=== PATIENT | male | born 1980 | race Caucasian/White ===

== ENCOUNTER 2018-12-30 17:17 | Emergency (ER) | payer OTHER ==
[2018-12-30 17:33] VITALS: O2SAT 96
[2018-12-30] MEDS ORDERED: Sodium Chloride 0.9% 1000 ML 1,000 ML IV STA ×2 (17:39→18:58)
[2018-12-30] MEDS ORDERED: TYLENOL 325 MG PO STA (17:39)
[2018-12-30] MEDS ORDERED: DUONEB 0.5-3 MG/3 ml Neb IH ONE ×5 (17:44→18:58)
--- NOTE | 2018-12-30 17:50 | ERPHSYRPT ---
- History of Present Illness Time Seen by Provider: 12/30/18 17:21 Source: patient, family, old records Exam Limitations: no limitations Patient Subjective Stated Complaint: states since thursday has had fever, body aches, cough, wheezing. has taken tylenol and motrin without relief. Triage Nursing Assessment: ambulated to room per self. skin w/d, color normal. resp nonlabored. occasional wheeze noted. occasional dry cough noted. Physician History: PT IS A 38 Y/O MALE C/O FEVER X 1 WEEK ACCOMPANIED BY COUGH AND WHEEZING AND SORE THROAT. SON AT HOME WITH STREP THROAT. NO DROOLING/DYSPHONIA/TRISMUS/CHEST PAIN/SOB. NO N/V/D/DYSURIA/HEMATURIA. NO TRAVEL OR INTERNATIONAL GUESTS. NO RASH OR TICK BITES. + MYALGIAS. NO RHINORRHEA. NO ARTHRALGIAS. TOOK SOME TYLENOL YESTERDAY. [PMHX DENIES PSHX DENIES MEDS REVIEWED ALL NKDA +TOB +_ ETOH OCC DENIES ILLICITS FHX NON CONTRIB EMPLOYED Allergies/Adverse Reactions: venom-honey bee [bee venom (honey bee)] Allergy (Unknown, Verified 12/30/18 17: 28) Hx Tetanus, Diphtheria Vaccination/Date Given: No Hx Influenza Vaccination/Date Given: No Hx Pneumococcal Vaccination/Date Given: No - Review of Systems Constitutional: No Symptoms, Fever, Fatigue, Malaise, No Chills, No Lethargy, No Night Sweats, No Weakness, No Weight Loss Eyes: No Symptoms, No Discharge, No Eye Pain, No Eye Redness, No Itchy, No Photophobia, No Tearing, No Vision Changes, No Double Vision, No Foreign Body Sensation Ears, Nose, & Throat: No Symptoms, Throat Pain, No Ear Pain, No Ear Discharge, No Hearing Changes, No Tinnitus, No Nose Congestion, No Nose Discharge, No Epistaxis, No Mouth Pain, No Mouth Swelling, No Throat Swelling, No Hoarse, No Painful Swallowing, No Stridor Respiratory: No Symptoms, Cough, Wheezing, No Cyanosis, No Dyspnea, No Dyspnea on Exertion (TORREZ), No Stridor Cardiac: No Symptoms, No Chest Pain, No Edema, No Palpitations, No Syncope, No Orthopnea Abdominal/Gastrointestinal: No Symptoms, No Abdominal Pain, No Nausea, No Vomiting, No Diarrhea, No Constipation, No Hematemesis, No Hematochezia, No Melena, No Dysphagia, No Appetite Changes Genitourinary Symptoms: No Symptoms, No Dysuria, No Frequency, No Hematuria, No Hesitancy, No Incontinence, No Urgency, No Urinary Retention, No Flank Pain Musculoskeletal: No Symptoms, No Arthralgias, No Back Pain, No Neck Pain, No Deformity, No Fall, No Injury, No Joint Redness, No Joint Pain, No Joint Swelling, No Myalgias Skin: No Symptoms, No Cellulitis, No Decubiti, No Induration, No Pruritis, No Rash, No Skin Lesions, No Dryness Neurological: No Symptoms, No Dizziness, No Focal Weakness, No Gait Changes, No Headache, No Irritability, No Lethargy, No Paralysis, No Parasthesia, No Seizure , No Sensory Changes, No Speech Changes, No Tics, No Tremors, No Vertigo Psychological: No Symptoms, No Alcohol Abuse, No Drug Abuse, No Anxiety, No Depression, No Suicidal Ideations, No Homicidal Ideations, No Emotional Lability , No Hallucinations, No Memory Loss, No Mood Changes Endocrine: No Symptoms, No Polyuria, No Polydipsia, No Hair Changes, No Cold Intolerance, No Excessive Sweating, No Goiter Hematologic/Lymphatic: No Symptoms, No Anemia, No Blood Clots, No Easy Bleeding , No Gum Bleeding, No Easy Bruising, No Adenopathy Immunological/Allergic: No Symptoms All Other Systems: Reviewed and Negative - Past Medical History Pertinent Past Medical History: No Neurological History: No Pertinent History ENT History: No Pertinent History Cardiac History: No Pertinent History Respiratory History: No Pertinent History Endocrine Medical History: No Pertinent History Musculoskeletal History: No Pertinent History GI Medical History: No Pertinent History - Past Surgical History Past Surgical History: Yes Neuro Surgical History: No Pertinent History Cardiac: No Pertinent History Respiratory: No Pertinent History Gastrointestinal: No Pertinent History Genitourinary: No Pertinent History Musculoskeletal: Orthopedic Surgery Male Surgical History: No Pertinent History Other Surgical History: right shoulder-LABRUM, RT CARPAL TUNNEL - Social History Smoking Status: Current every day smoker How long have you smoked: 20 Exposure to second hand smoke: Yes Drug Use: none Patient Lives Alone: Yes - Nursing Vital Signs Nursing Vital Signs: Initial Vital Signs Temperature 100 F 12/30/18 17:24 Pulse Rate 107 H 12/30/18 17:24 Respiratory Rate 16 12/30/18 17:24 Blood Pressure 155/84 12/30/18 17:24 O2 Sat by Pulse Oximetry 96 12/30/18 17:24 Pain Scale Pain Intensity 6 - Physical Exam General Appearance: no apparent distress, alert Eye Exam: PERRL/EOMI, eyes nml inspection, other (fundi normal stefany), No scleral icterus, No pale conjunctivae, No photophobia, No EOM palsy/anisocoria Ears, Nose, Throat Exam: normal ENT inspection, TMs normal, pharynx normal, TM abnormal (L), pharyngeal erythema, other (uvula midline, floor of mouth soft, NO TRISMUS), No moist mucous membranes, No dry mucous membranes, No TM abnormal (R), No tonsillar exudate Neck Exam: normal inspection, non-tender, supple, full range of motion, No meningismus, No mass, No Brudzinski, No Kernig's, No carotid bruit, No JVD, No limited range of motion, No lymphadenopathy, No midline tenderness, No thyromegaly Respiratory Exam: airway intact, diminished breath sounds, wheezing, No chest tenderness, No respiratory distress, No accessory muscle use, No prolonged expirations, No crackles/rales, No rhonchi, No stridor, No pleural rub Cardiovascular Exam: regular rate/rhythm, normal heart sounds, normal peripheral pulses, tachycardia, capillary refill <2 sec, No murmur, No friction rub, No gallop, No bradycardia, No irregular, No capillary refill 2-3 sec, No capillary refill >3 sec, No edema, No pulse deficit Gastrointestinal/Abdomen Exam: soft, normal bowel sounds, No tenderness, No distention, No mass, No guarding, No ecchymosis, No pulsatile mass, No rebound, No hernia, No hepatomegaly, No organomegaly, No splenomegaly, No bruit Male Genitalia Exam: normal genitalia Rectal Exam: deferred Back Exam: normal inspection, normal range of motion, other (neg slr stefany, no sacral anesthesia, dtr 2/4 stefany patella), No CVA tenderness, No vertebral tenderness, No rash, No decreased range of motion, No muscle spasm, No point tenderness Extremity Exam: normal inspection, normal range of motion, pelvis stable, No amputations, No contusions, No calf tenderness, No deformities, No lacerations, No parasthesia, No paralysis, No inflammation, No joint swelling, No limited range of motion, No pedal edema, No swelling, No tenderness Neurologic Exam: alert, oriented x 3, cooperative, 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[place] [employer] II-XII nml as tested, normal mood/affect, nml cerebellar function, nml station & gait, sensation nml, No motor deficits, No sensory deficit, No disoriented, No confusion, No agitation, No uncooperative, No intoxicated appearance, No depressed mood/affect , No motor weakness, No facial droop, No slurred speech, No aphasia, No dysarthria, No abnormal gait, No abnormal cerebellar tests, No abnormal 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ing mill II- XII, No EOM palsy Skin Exam: normal color, warm, dry, No rash, No petechiae, No jaundice, No abrasion, No cyanosis, No diaphoresis, No decubitus, No embolic lesions, No ecchymosis, No jaundice, No laceration, No mottled, No pale Lymphatic Exam: No adenopathy SpO2 Interpretation: normal SpO2: 96 O2 Delivery: Room Air - Course Nursing assessment & vital signs reviewed: Yes Ordered Tests: Active Orders 24 hr Category Date Time Status IV Insertion STAT Care 12/30/18 17:39 Active CHEST 2 VIEWS (PA AND LAT) Stat Exams 12/30/18 17:41 Taken CBC W DIFF Stat Lab 12/30/18 18:03 Completed CMP Stat Lab 12/30/18 18:03 Completed Lactic Acid Stat Lab 12/30/18 19:00 Ordered [place] Screen Stat Lab 12/30/18 18:03 Completed UA W/RFX UR CULTURE Stat Lab 12/30/18 17:40 Uncollected Peak Expiratory Flow Rate ONCE RT 12/30/18 18:27 Active Respiratory Therapy Assessment DAILY RT 12/30/18 18:27 Active Medication Summary Generic Name Dose Route Start Last Admin Trade Name Freq PRN Reason Stop Dose Admin Dexamethasone Sodium Phosphate 10 mg 12/30/18 19:01 Decadron 10mg Inj. IV 12/30/18 19:02 STAT ONE Sodium Chloride 1,000 mls @ 999 mls/hr 12/30/18 18:58 Sodium Chloride 0.9% 1000 Ml IV 12/30/18 19:58 .Q1H1M STA Discontinued Medications Generic Name Dose Route Start Last Admin Trade Name Freq PRN Reason Stop Dose Admin Acetaminophen 650 mg 12/30/18 17:39 12/30/18 18:03 Tylenol 325 Mg PO 12/30/18 17:40 650 mg STAT STA Administration Acetaminophen Confirm 12/30/18 17:58 Tylenol 325 Mg Administered 12/30/18 17:59 Dose 650 mg .ROUTE .STK-MED ONE Albuterol/Ipratropium 3 ml 12/30/18 17:44 12/30/18 18:22 Duoneb 0.5-3 Mg/3 Ml Neb IH 12/30/18 17:45 3 ml STAT ONE Administration Albuterol/Ipratropium 3 ml 12/30/18 17:45 12/30/18 18:22 Duoneb 0.5-3 Mg/3 Ml Neb IH 12/30/18 17:46 3 ml STAT ONE Administration Albuterol/Ipratropium 3 ml 12/30/18 17:45 12/30/18 18:22 Duoneb 0.5-3 Mg/3 Ml Neb IH 12/30/18 17:46 3 ml STAT ONE Administration Albuterol/Ipratropium Confirm 12/30/18 18:18 Duoneb 0.5-3 Mg/3 Ml Neb Administered 12/30/18 18:19 Dose 9 ml IH .STK-MED ONE Albuterol/Ipratropium 3 ml 12/30/18 18:58 Duoneb 0.5-3 Mg/3 Ml Neb IH 12/30/18 18:59 STAT ONE Sodium Chloride 1,000 mls @ 999 mls/hr 12/30/18 17:39 12/30/18 18:02 Sodium Chloride 0.9% 1000 Ml IV 12/30/18 18:39 999 mls/hr .Q1H1M STA Administration Sodium Chloride Confirm 12/30/18 17:58 Sodium Chloride 0.9% 1000 Ml Administered 12/30/18 17:59 Dose 1,000 mls @ ud .ROUTE .STK-MED ONE Ketorolac Tromethamine 30 mg 12/30/18 18:58 Toradol 30 Mg Injection IV 12/30/18 18:59 STAT ONE Lab/Rad Data: Laboratory Result Diagrams 12/30/18 18:03 12/30/18 18:03 Laboratory Results 12/30/18 12/30/18 12/30/18 Range/Units 18:09 18:03 18:03 WBC (4.0-10.5) K/mm3 RBC (4.1-5.6) M/mm3 Hgb (12.5-18.0) gm/dl Hct (42-50) % MCV (78-100) fl MCH (26-32) pg MCHC (32-36) g/dl RDW (11.5-14.0) % Plt Count (150-450) K/mm3 MPV (6-9.5) fl Gran % (36.0-66.0) % Eos # (Auto) (0-0.5) Absolute Lymphs (auto) (1.0-4.6) Absolute Monos (auto) (0.0-1.3) Lymphocytes % (24.0-44.0) % Monocytes % (0.0-12.0) % Eosinophils % (0.00-5.0) % Basophils % (0.0-0.4) % Absolute Granulocytes (1.4-6.9) Basophils # (0-0.4) Sodium (137-145) mmol/L Potassium (3.5-5.1) mmol/L Chloride (98-107) mmol/L Carbon Dioxide (22-30) mmol/L Anion Gap (5-15) MEQ/L BUN (9-20) mg/dL Creatinine (0.66-1.25) mg/dL Estimated GFR ML/MIN Glucose (74-106) mg/dL Calcium (8.4-10.2) mg/dL Total Bilirubin (0.2-1.3) mg/dL AST (17-59) U/L ALT (0-50) U/L Alkaline Phosphatase (38-126) U/L Serum Total Protein (6.3-8.2) g/dL Albumin (3.5-5.0) g/dL Monoscreen NEGATIVE (Negative) Influenza Type A Ag NEGATIVE (NEGATIVE) Influenza Type B Ag NEGATIVE (NEGATIVE) RSV (PCR) NEGATIVE (Negative) Group A Strep Antibody NEGATIVE (NEGATIVE) 12/30/18 12/30/18 Range/Units 18:03 18:03 WBC 11.8 H (4.0-10.5) K/mm3 RBC 5.58 (4.1-5.6) M/mm3 Hgb 16.5 (12.5-18.0) gm/dl Hct 49.4 (42-50) % MCV 88.5 (78-100) fl MCH 29.6 (26-32) pg MCHC 33.4 (32-36) g/dl RDW 13.2 (11.5-14.0) % Plt Count 198 (150-450) K/mm3 MPV 9.5 (6-9.5) fl Gran % 72.1 H (36.0-66.0) % Eos # (Auto) 0.10 (0-0.5) Absolute Lymphs (auto) 2.13 (1.0-4.6) Absolute Monos (auto) 1.04 (0.0-1.3) Lymphocytes % 18.0 L (24.0-44.0) % Monocytes % 8.8 (0.0-12.0) % Eosinophils % 0.8 (0.00-5.0) % Basophils % 0.3 (0.0-0.4) % Absolute Granulocytes 8.52 H (1.4-6.9) Basophils # 0.03 (0-0.4) Sodium 139 (137-145) mmol/L Potassium 3.7 (3.5-5.1) mmol/L Chloride 101 (98-107) mmol/L Carbon Dioxide 27 (22-30) mmol/L Anion Gap 14.6 (5-15) MEQ/L BUN 14 (9-20) mg/dL Creatinine 1.08 (0.66-1.25) mg/dL Estimated GFR > 60.0 ML/MIN Glucose 126 H (74-106) mg/dL Calcium 9.5 (8.4-10.2) mg/dL Total Bilirubin 0.40 (0.2-1.3) mg/dL AST 24 (17-59) U/L ALT 24 (0-50) U/L Alkaline Phosphatase 61 (38-126) U/L Serum Total Protein 7.5 (6.3-8.2) g/dL Albumin 4.4 (3.5-5.0) g/dL Monoscreen (Negative) Influenza Type A Ag (NEGATIVE) Influenza Type B Ag (NEGATIVE) RSV (PCR) (Negative) Group A Strep Antibody (NEGATIVE) - Progress Progress: improved Progress Note: 12/30/18 19:01 STILL WHEEZING AFTER NEBS X 3 STILL TACHYCARDIC AND FEBRILE WILL ADD TORADOL, REPEAT NEB, DECADRON, MORE IVF PT APPEARS ILL BUT NOT TOXIC RESP PANEL NEG ? EARLY LL INFILTRATE? WILL COVER WITH ROCEPHIN ZITRHOMAX AND CHECK LACTATE DW PT ADMISSION BUT HE REFUSES 12/30/18 19:03 12/30/181999 CARE ENDORSED TO PARTH RE-EVAL LABS AND PT. IF PT STILL REFUSES ADMISSION, PARTH TO AMA WITH ZPAK, PREDNISONE, ALBUTEROL ALL QUESTIONS ANSWERED TO PT AND FAMILY SATISFACTION Counseled pt/family regarding: drug and/or alcohol abuse, lab results, diagnosis , need for follow-up, rad results, smoking cessation - Departure Departure Disposition: AMA Clinical Impression: Left lower lobe pneumonia, Bronchospasm, acute Condition: Stable Critical Care Time: No Referrals: DOT CAMPOS [Primary Care Provider] - Instructions: Pneumonia, Adult (DC), Fever, Adult (DC), Asthma in Adults Additional Instructions: TO ER IF FEVER OVER 102 THAT WILL NOT GO DOWN WITH TYLENOL AND MOTRIN, INTRACTABLE VOMTING, FAINTING, WORSENING SHORTNESS OF BREATH TAKE MEDICINES DIRECTED YOU WERE OFFERED ADMISSION BECAUSE YOU WERE STILL WHEEZING DESPITE ALBUTEROL TREATMENTS AND YOU WERE STILL FEELING SICK YOU WERE COMPETENT TO MAKE A DECISION BUT DECIDED TO LEAVE AGAINST MEDICAL ADVICE YOUR CHEST XRAY MAY SHOW AN EARLY PNEUMONIA. IT WILL BE OVER-READ TOMORROW BY THE RADIOLOGIST PLEASE SEE YOUR DOCTOR TOMORROW Prescriptions: Azithromycin 250 mg PO DAILY 5 Days #6 tablet Prednisone 50 mg PO DAILY 5 Days #5 tablet
[2018-12-30] MEDS ORDERED: TYLENOL 325 MG ONE (17:58)
[2018-12-30] MEDS ORDERED: Sodium Chloride 0.9% 1000 ML 1,000 ML ONE (17:58)
[2018-12-30 18:08] LABS: Absolute Neutrophil Ct (ANC) 8.52 (1.4-6.9); BASOPHIL % 0.3 % (0.0-0.4); Basophil (Absolute #) 0.03 (0-0.4); Eosinophil % 0.8 % (0.00-5.0); Hematocrit 49.4 % (42-50); Hemoglobin 16.5 gm/dl (12.5-18.0); Lymphocyte (Absolute #) 2.13 (1.0-4.6); Mean Cell Volume 88.5 fl (78-100); Mean Corpuscular Hemoglobin 29.6 pg (26-32); Mean Corpuscular Hgb Concent. 33.4 g/dl (32-36); Mean Platelet Volume 9.5 fl (6-9.5); Monocyte (Absolute #) 1.04 (0.0-1.3); Monocytes % 8.8 % (0.0-12.0); Neutrophil % 72.1 % (36.0-66.0); Platelet Count 198 K/mm3 (150-450); Red Blood Count 5.58 M/mm3 (4.1-5.6); Red Cell Distribution Width 13.2 % (11.5-14.0); White Blood Count 11.8 K/mm3 (4.0-10.5)
[2018-12-30 18:22] LABS: ALBUMIN 4.4 g/dL (3.5-5.0); ALKALINE PHOSPHATASE 61 U/L (38-126); ANION GAP 14.6 MEQ/L (5-15); BLOOD UREA NITROGEN 14 mg/dL (9-20); CHLORIDE 101 mmol/L (98-107); Calcium 9.5 mg/dL (8.4-10.2); Carbon Dioxide 27 mmol/L (22-30); Creatinine 1 1.08 mg/dL (0.66-1.25); Glucose 126 mg/dL (74-106); Potassium 3.7 mmol/L (3.5-5.1); SGOT/AST 24 U/L (17-59); SGPT/ALT 24 U/L (0-50); SODIUM 139 mmol/L (137-145); Total Protein 7.5 g/dL (6.3-8.2)
[2018-12-30 18:42] LABS: INFLUENZA A NEGATIVE (NEGATIVE); INFLUENZA B NEGATIVE (NEGATIVE); RESPIRATORY SYNCTIAL VIRUS NEGATIVE (Negative)
[2018-12-30] MEDS ORDERED: TORAdol 30 mg Injection IV ONE (18:58)
[2018-12-30] MEDS ORDERED: DECADRON 10MG INJ. IV ONE (19:01)
[2018-12-30 19:31] LABS: Appearance CLEAR (CLEAR); Bilirubin NEGATIVE (NEGATIVE); Blood SMALL Ery/ul (0-5); Glucose NEGATIVE (NEGATIVE); Ketones NEGATIVE (NEGATIVE); Leukocyte Esterase NEGATIVE (NEGATIVE); Mucus SLIGHT /HPF (NEGATIVE); Nitrite NEGATIVE (NEGATIVE); Protein,Urine Dip NEGATIVE (Negative); Urobilinogen NEGATIVE mg/dL (0-1)
[2018-12-30 19:41] LABS: Bacteria NONE SEEN /HPF (NEGATIVE)
[2018-12-30] MEDS ORDERED: Zithromax 250 MG TABLET PO ONE (19:58)
[2018-12-30] MEDS ORDERED: ROCEPHIN 1 Gm-D5w 50 ml Bag** 1 G/50 ML IVPB IV STA (19:58)
[2018-12-30 20:42] VITALS: BP 109/65; PULSE 79
--- NOTE | 2018-12-31 08:39 | XRAY ---
Indication: Fever, cough, and chest pain. Comparison: July 06, 2018. PA/lateral chest demonstrates new subtle right lower lobe infiltrate. Remaining heart, left lung, and bony thorax normal again with a few incidental tiny calcified granulomas.
== END 2018-12-30 20:49 | disposition left against medical advice (07) ==
LOC: ED 17:17
DX: J18.1 Lobar pneumonia, unspecified organism (principal); J98.01 Acute bronchospasm
CPT/HCPCS: 36000; 36415; 71046; 80053; 81001; 83605; 85025; 86308; 87631; 87651; 94150; 94640; 96360; 99284; 99291; 99292; A9270-GY

== ENCOUNTER 2020-11-16 08:58 | Emergency (ER) | payer BC, OTHER ==
--- NOTE | 2020-11-16 09:03 | ERPHSYRPT ---
- History of Present Illness Time Seen by Provider: 11/16/20 09:01 Historian: patient Exam Limitations: no limitations Physician History: This is a 40-year-old white male smoker of Camel cigarettes and patient of Dr. Dot Edmonds who presents with 9-day history of central, substernal nonradiating chest pain that describes as aching with intermittent periods of sharp pain. Patient has been under a lot of stress recently. He has not had a fever. He denies cough. He has no known documented coronary artery disease. He takes no medications and has no medication allergies. He has no abdominal pain. He has not had any nausea vomiting or diarrhea symptoms. Timing/Duration: day(s) (9) Activities at Onset: none Quality: aching, sharpness (With intermittent sharpness during the 9 days) Location: substernal, central Chest Pain Radiation: no radiation Severity of Pain-Max: moderate Severity of Pain-Current: mild (To moderate) Associated Symptoms: denies symptoms Prior Chest Pain/Cardiac Workup: no prior chest pain Nitro Today/Relief: no nitro taken today Aspirin Treatment Today: no aspirin today Allergies/Adverse Reactions: venom-honey bee [bee venom (honey bee)] Allergy (Unknown, Verified 11/16/20 09:00) Home Medications: No Reportable Medications [No Reported Medications] 11/16/20 [History] Hx Tetanus, Diphtheria Vaccination/Date Given: No Hx Influenza Vaccination/Date Given: No Hx Pneumococcal Vaccination/Date Given: No Travel Risk - International Travel Have you traveled outside of the country in past 3 weeks: No - Coronavirus Screening Are you exhibiting any of the following symptoms?: No Close contact with a COVID-19 positive Pt in past 14-21 Days: No - Review of Systems Constitutional: No Symptoms Eyes: No Symptoms Ears, Nose, & Throat: No Symptoms Respiratory: No Symptoms Cardiac: Chest Pain Abdominal/Gastrointestinal: No Symptoms Genitourinary Symptoms: No Symptoms Musculoskeletal: No Symptoms Skin: No Symptoms Neurological: No Symptoms Psychological: No Symptoms Endocrine: No Symptoms Hematologic/Lymphatic: No Symptoms Immunological/Allergic: No Symptoms All Other Systems: Reviewed and Negative - Past Medical History Pertinent Past Medical History: No Neurological History: No Pertinent History ENT History: No Pertinent History Cardiac History: No Pertinent History Respiratory History: No Pertinent History Endocrine Medical History: No Pertinent History Musculoskeletal History: No Pertinent History GI Medical History: No Pertinent History - Past Surgical History Past Surgical History: Yes Neuro Surgical History: No Pertinent History Cardiac: No Pertinent History Respiratory: No Pertinent History Gastrointestinal: No Pertinent History Genitourinary: No Pertinent History Musculoskeletal: Orthopedic Surgery Male Surgical History: No Pertinent History Other Surgical History: right shoulder-LABRUM, RT CARPAL TUNNEL - Social History Smoking Status: Current every day smoker How long have you smoked: 20 Exposure to second hand smoke: Yes Drug Use: none Patient Lives Alone: Yes - Nursing Vital Signs Nursing Vital Signs: Initial Vital Signs Temperature 98.0 F 11/16/20 09:00 Pulse Rate 63 11/16/20 09:00 Respiratory Rate 18 11/16/20 09:00 Blood Pressure 152/81 11/16/20 09:00 O2 Sat by Pulse Oximetry 99 11/16/20 09:00 Pain Scale Pain Intensity 0 - Physical Exam General Appearance: mild distress, alert, anxiety Eye Exam: PERRL/EOMI, eyes nml inspection Ears, Nose, Throat Exam: normal ENT inspection, moist mucous membranes Neck Exam: normal inspection, non-tender, supple, full range of motion Respiratory Exam: normal breath sounds, chest tenderness, lungs clear, airway intact, No respiratory distress Cardiovascular Exam: regular rate/rhythm, normal heart sounds, normal peripheral pulses Gastrointestinal/Abdomen Exam: soft, normal bowel sounds, No tenderness Rectal Exam: not done Back Exam: normal inspection, normal range of motion, No CVA tenderness, No vertebral tenderness Extremity Exam: normal inspection, normal range of motion, pelvis stable Neurologic Exam: alert, oriented x 3, cooperative, 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 There is no change from comparison EKG dated 11/20/2014) Ordered Tests: Active Orders 24 hr Category Date Time Status EKG-ER Only STAT Care 11/16/20 09:04 Active IV Insertion STAT Care 11/16/20 09:04 Active Pulse Oximetry (ED) STAT Care 11/16/20 09:04 Active CHEST 1 VIEW (PORTABLE) Stat Exams 11/16/20 09:18 Completed CBC W DIFF Stat Lab 11/16/20 09:19 Completed CMP Routine Lab 11/16/20 09:19 Completed D-DIMER QUANTITATIVE Stat Lab 11/16/20 09:19 Completed NT PRO BNP Routine Lab 11/16/20 09:19 Completed PROTIME WITH INR Stat Lab 11/16/20 09:19 Completed TROPONIN Q3H Lab 11/16/20 09:19 Completed TROPONIN Q3H Lab 11/16/20 12:15 Completed TROPONIN Q3H Lab 11/16/20 15:15 Ordered TROPONIN Q3H Lab 11/16/20 18:15 Ordered TROPONIN Q3H Lab 11/16/20 21:15 Ordered Medication Summary Generic Name Dose Route Start Last Admin Trade Name Freq PRN Reason Stop Dose Admin Sodium Chloride 1,000 mls @ 50 mls/hr 11/16/20 09:15 11/16/20 09:31 Sodium Chloride 0.9% 1000 Ml IV 12/16/20 09:14 50 mls/hr .Q20H THEODORA Administration Discontinued Medications Generic Name Dose Route Start Last Admin Trade Name Freq PRN Reason Stop Dose Admin Aspirin 324 mg 11/16/20 09:04 11/16/20 09:29 Baby Aspirin 81 Mg Chew PO 11/16/20 09:05 324 mg STAT ONE Administration Aspirin Confirm 11/16/20 09:28 Baby Aspirin 81 Mg Chew Administered 11/16/20 09:29 Dose 324 mg .ROUTE .STK-MED ONE Morphine Sulfate 2 mg 11/16/20 09:04 11/16/20 09:31 Morphine Sulfate 2 Mg Inj IV 11/16/20 09:05 2 mg STAT ONE Administration Morphine Sulfate Confirm 11/16/20 09:28 Morphine Sulfate 2 Mg Inj Administered 11/16/20 09:29 Dose 2 mg .ROUTE .STK-MED ONE Nitroglycerin 0.4 mg 11/16/20 09:04 11/16/20 09:30 Nitrostat 0.4 Mg (Ed) SL 11/16/20 09:05 0.4 mg STAT ONE Administration Nitroglycerin Confirm 11/16/20 09:28 Nitrostat 0.4 Mg (Ed) Administered 11/16/20 09:29 Dose 0.4 mg SL .STK-MED ONE Ondansetron HCl 4 mg 11/16/20 09:04 11/16/20 09:30 Zofran 4 Mg/2 Ml Vial IV 11/16/20 09:05 4 mg STAT ONE Administration Ondansetron HCl Confirm 11/16/20 09:28 Zofran 4 Mg/2 Ml Vial Administered 11/16/20 09:29 Dose 4 mg .ROUTE .STK-MED ONE Lab/Rad Data: Laboratory Result Diagrams 11/16/20 09:19 11/16/20 09:19 Laboratory Results 11/16/20 11/16/20 11/16/20 Range/Units 12:15 09:19 09:19 WBC (4.0-10.5) K/mm3 RBC (4.1-5.6) M/mm3 Hgb (12.5-18.0) gm/dl Hct (42-50) % MCV (78-100) fl MCH (26-32) pg MCHC (32-36) g/dl RDW (11.5-14.0) % Plt Count (150-450) K/mm3 MPV (7.5-11.0) fl Gran % (36.0-66.0) % Eos # (Auto) (0-0.5) Absolute Lymphs (auto) (1.0-4.6) Absolute Monos (auto) (0.0-1.3) Lymphocytes % (24.0-44.0) % Monocytes % (0.0-12.0) % Eosinophils % (0.00-5.0) % Basophils % (0.0-0.4) % Absolute Granulocytes (1.4-6.9) Basophils # (0-0.4) PT 11.1 (9.4-12.5) SECONDS INR 0.94 (0.8-3.0) D-Dimer 345 (215-500) ng/mL Sodium 137 (137-145) mmol/L Potassium 4.0 (3.5-5.1) mmol/L Chloride 104 (98-107) mmol/L Carbon Dioxide 21 L (22-30) mmol/L Anion Gap 15.6 H (5-15) MEQ/L BUN 18 (9-20) mg/dL Creatinine 0.84 (0.66-1.25) mg/dL Estimated GFR > 60.0 ML/MIN Glucose 166 H (74-106) mg/dL Calcium 9.6 (8.4-10.2) mg/dL Total Bilirubin 0.30 (0.2-1.3) mg/dL AST 28 (17-59) U/L ALT 25 (0-50) U/L Alkaline Phosphatase 62 (38-126) U/L Troponin I < 0.012 < 0.012 (0.000-0.034) ng/mL NT-Pro-B Natriuret Pep < 11.5 (0-450) pg/mL Serum Total Protein 6.7 (6.3-8.2) g/dL Albumin 4.4 (3.5-5.0) g/dL 11/16/20 Range/Units 09:19 WBC 14.9 H (4.0-10.5) K/mm3 RBC 5.28 (4.1-5.6) M/mm3 Hgb 15.6 (12.5-18.0) gm/dl Hct 46.5 (42-50) % MCV 88.1 (78-100) fl MCH 29.5 (26-32) pg MCHC 33.5 (32-36) g/dl RDW 13.4 (11.5-14.0) % Plt Count 267 (150-450) K/mm3 MPV 9.4 (7.5-11.0) fl Gran % 75.7 H (36.0-66.0) % Eos # (Auto) 0.22 (0-0.5) Absolute Lymphs (auto) 2.69 (1.0-4.6) Absolute Monos (auto) 0.61 (0.0-1.3) Lymphocytes % 18.1 L (24.0-44.0) % Monocytes % 4.1 (0.0-12.0) % Eosinophils % 1.5 (0.00-5.0) % Basophils % 0.6 (0.0-0.4) % Absolute Granulocytes 11.26 H (1.4-6.9) Basophils # 0.09 (0-0.4) PT (9.4-12.5) SECONDS INR (0.8-3.0) D-Dimer (215-500) ng/mL Sodium (137-145) mmol/L Potassium (3.5-5.1) mmol/L Chloride (98-107) mmol/L Carbon Dioxide (22-30) mmol/L Anion Gap (5-15) MEQ/L BUN (9-20) mg/dL Creatinine (0.66-1.25) mg/dL Estimated GFR ML/MIN Glucose (74-106) mg/dL Calcium (8.4-10.2) mg/dL Total Bilirubin (0.2-1.3) mg/dL AST (17-59) U/L ALT (0-50) U/L Alkaline Phosphatase (38-126) U/L Troponin I (0.000-0.034) ng/mL NT-Pro-B Natriuret Pep (0-450) pg/mL Serum Total Protein (6.3-8.2) g/dL Albumin (3.5-5.0) g/dL - Progress Progress: improved, re-examined Air Movement: good Progress Note: 11/16/20 10:44 Chest x-ray shows no acute cardiopulmonary process. 11/16/20 10:45 Medical decision making: I reevaluated this patient. Patient states he is much better and his pain is resolved after the morphine and nitroglycerin. We will keep the patient here for 3-hour troponin as well. If this is negative, we will send him home to follow-up with Dr. Edmonds for further management evaluation. 11/16/20 12:11 I did speak with his primary care doctor, Dot Edmonsd. She stated it if his 3- hour is negative, he can go home. I just evaluate him he is resting comfortably has no chest pain. Blood Culture(s) Obtained: No Antibiotics given: No Counseled pt/family regarding: lab results, diagnosis, need for follow-up, rad results - Departure Departure Disposition: Home Clinical Impression: Chest pain Condition: Stable Critical Care Time: No Referrals: DOT EDMONDS [Primary Care Provider] - Additional Instructions: Follow-up with Dr. Edmonds in her office by phone on 11/19/2020 to make arrangements for follow-up appointment and further management and evaluation.
[2020-11-16] MEDS ORDERED: Zofran 4 MG/2 ML VIAL IV ONE (09:04)
[2020-11-16] MEDS ORDERED: Nitrostat 0.4 MG (ED) SL ONE ×2 (09:04→09:28)
[2020-11-16] MEDS ORDERED: BABY ASPIRIN 81 MG CHEW PO ONE (09:04)
[2020-11-16] MEDS ORDERED: MORPHINE SULFATE 2 MG INJ IV ONE (09:04)
[2020-11-16] MEDS ORDERED: Sodium Chloride 0.9% 1000 ML 1,000 ML IV SCH (09:15)
[2020-11-16 09:25] LABS: Absolute Neutrophil Ct (ANC) 11.26 (1.4-6.9); BASOPHIL % 0.6 % (0.0-0.4); Basophil (Absolute #) 0.09 (0-0.4); Eosinophil % 1.5 % (0.00-5.0); Eosinophil (Absolute #) 0.22 (0-0.5); Hematocrit 46.5 % (42-50); Hemoglobin 15.6 gm/dl (12.5-18.0); Lymphocyte (Absolute #) 2.69 (1.0-4.6); Lymphocytes % 18.1 % (24.0-44.0); Mean Cell Volume 88.1 fl (78-100); Mean Corpuscular Hemoglobin 29.5 pg (26-32); Mean Corpuscular Hgb Concent. 33.5 g/dl (32-36); Mean Platelet Volume 9.4 fl (7.5-11.0); Monocyte (Absolute #) 0.61 (0.0-1.3); Monocytes % 4.1 % (0.0-12.0); Neutrophil % 75.7 % (36.0-66.0); Platelet Count 267 K/mm3 (150-450); Red Blood Count 5.28 M/mm3 (4.1-5.6); Red Cell Distribution Width 13.4 % (11.5-14.0); White Blood Count 14.9 K/mm3 (4.0-10.5)
[2020-11-16] MEDS ORDERED: MORPHINE SULFATE 2 MG INJ ONE (09:28)
[2020-11-16] MEDS ORDERED: Sodium Chloride 0.9% 1000 ML 1,000 ML ONE (09:28)
[2020-11-16] MEDS ORDERED: BABY ASPIRIN 81 MG CHEW ONE (09:28)
[2020-11-16] MEDS ORDERED: Zofran 4 MG/2 ML VIAL ONE (09:28)
--- NOTE | 2020-11-16 09:31 | XRAY ---
Indication: Chest pain. Comparison: March 08, 2020. Portable chest again demonstrates normal heart, lungs, and bony thorax.
[2020-11-16 09:33] LABS: INR 0.94 (0.8-3.0); PROTIME 11.1 SECONDS (9.4-12.5)
[2020-11-16 09:51] LABS: ALBUMIN 4.4 g/dL (3.5-5.0); ALKALINE PHOSPHATASE 62 U/L (38-126); ANION GAP 15.6 MEQ/L (5-15); BLOOD UREA NITROGEN 18 mg/dL (9-20); CHLORIDE 104 mmol/L (98-107); Calcium 9.6 mg/dL (8.4-10.2); Carbon Dioxide 21 mmol/L (22-30); Creatinine 1 0.84 mg/dL (0.66-1.25); EST GLOMERULAR FILTRATION RATE > 60.0 ML/MIN; Glucose 166 mg/dL (74-106); NT PRO BNP < 11.5 pg/mL (0-450); SGOT/AST 28 U/L (17-59); SGPT/ALT 25 U/L (0-50); SODIUM 137 mmol/L (137-145); TROPONIN < 0.012 ng/mL (0.000-0.034); Total Protein 6.7 g/dL (6.3-8.2)
[2020-11-16 14:14] VITALS: BP 131/83; PULSE 83; O2SAT 98
== END 2020-11-16 14:14 | disposition home or self-care (01) ==
LOC: ED 08:58
DX: R07.9 Chest pain, unspecified (principal); Z72.0 Tobacco use
CPT/HCPCS: 36000; 36415; 71045; 80053; 83880; 84484; 85025; 85379; 85610; 93005; 94760; 96374; 96375; 99284; J2270; J2405; A9270-GY

== ENCOUNTER 2021-01-03 16:17 | Emergency (ER) | payer BC ==
[2021-01-03 16:49] VITALS: O2SAT 98
[2021-01-03] MEDS ORDERED: MOTRIN 600 MG PO ONE (16:57)
[2021-01-03] MEDS ORDERED: TYLENOL 325 MG PO STA (16:57)
[2021-01-03] MEDS ORDERED: TYLENOL 325 MG ONE (17:14)
[2021-01-03] MEDS ORDERED: MOTRIN 600 MG ONE (17:14)
[2021-01-03 18:31] LABS: INFLUENZA A NEGATIVE (NEGATIVE); INFLUENZA B NEGATIVE (NEGATIVE); RESPIRATORY SYNCTIAL VIRUS NEGATIVE (Negative); SARS-CoV-2 Xpert Express NEGATIVE (NEGATIVE)
--- NOTE | 2021-01-03 20:04 | ERPHSYRPT ---
- History of Present Illness Time Seen by Provider: 01/03/21 16:50 Source: patient Exam Limitations: no limitations Patient Subjective Stated Complaint: Fever Triage Nursing Assessment: Patient brought back to ED via w/c and transferred to bed per self. Patient A+O X3. Patient's skin flushed, warm and dry. Patient complains of waking up around 1330 with a fever unknown amount due to not taking it and body aches. Patient complains of body aches 6/10. Patient denies cough, SOB, N/V, and diarrhea. Physician History: Patient is a 40-year-old male presents to our ED for evaluation of a fever. Patient states he awoke today at approximately 330 feeling warm. He did not measure her temperature at that time. Patient is experiencing diffuse myalgias. Patient has not taken any analgesics or antipyretics. Patient came to our ED for evaluation and treatment. No obvious sick contacts. No chest pain or shortness of breath. No nausea vomiting or diaphoresis. No diarrhea. No rash. No photophobia. No headache. No neck pain. Patient has no meningeal signs. Symptoms are mild to moderate in intensity. No specific worsening or improving factors. Patient is otherwise healthy. He voices no other complaints or concerns at this time. Timing/Duration: today Severity: moderate Modifying Factors: Improves With: nothing Associated Symptoms: denies symptoms Allergies/Adverse Reactions: venom-honey bee [bee venom (honey bee)] Allergy (Unknown, Verified 01/03/21 16:42) Home Medications: Aspirin 81 gm Chew [Baby Aspirin 81 mg Chew] 1 tab PO DAILY 01/03/21 [History] Carvedilol 3.125 mg [Coreg 3.125 MG] 1 tab PO BID 01/03/21 [History] Hx Tetanus, Diphtheria Vaccination/Date Given: No Hx Influenza Vaccination/Date Given: No Hx Pneumococcal Vaccination/Date Given: No Immunizations Up to Date: Yes Travel Risk - International Travel Have you traveled outside of the country in past 3 weeks: No - Coronavirus Screening Are you exhibiting any of the following symptoms?: Yes Symptoms: Fever, Headaches/Body Aches/Fatigue Close contact with a COVID-19 positive Pt in past 14-21 Days: No - Vaccine Status Have you recieved a Covid-19 vaccination: No - Review of Systems Constitutional: No Symptoms, No Fever, No Chills Eyes: No Symptoms Ears, Nose, & Throat: No Symptoms Respiratory: No Symptoms, No Cough, No Dyspnea Cardiac: No Symptoms, No Chest Pain, No Edema, No Syncope Abdominal/Gastrointestinal: No Symptoms, No Abdominal Pain, No Nausea, No Vomiting, No Diarrhea Genitourinary Symptoms: No Symptoms, No Dysuria Musculoskeletal: No Symptoms, No Back Pain, No Neck Pain Skin: No Symptoms, No Rash Neurological: No Symptoms, No Dizziness, No Focal Weakness, No Sensory Changes Psychological: No Symptoms Endocrine: No Symptoms Hematologic/Lymphatic: No Symptoms Immunological/Allergic: No Symptoms All Other Systems: Reviewed and Negative - Past Medical History Pertinent Past Medical History: No Neurological History: No Pertinent History ENT History: No Pertinent History Cardiac History: No Pertinent History Respiratory History: No Pertinent History Endocrine Medical History: No Pertinent History Musculoskeletal History: No Pertinent History GI Medical History: No Pertinent History History: No Pertinent History Psycho-Social History: No Pertinent History Male Reproductive Disorders: No Pertinent History - Past Surgical History Past Surgical History: Yes Neuro Surgical History: No Pertinent History Cardiac: No Pertinent History Respiratory: No Pertinent History Gastrointestinal: No Pertinent History Genitourinary: No Pertinent History Musculoskeletal: Orthopedic Surgery Male Surgical History: No Pertinent History Other Surgical History: right shoulder-LABRUM, RT CARPAL TUNNEL - Social History Smoking Status: Current every day smoker How long have you smoked: 20 Exposure to second hand smoke: Yes Drug Use: none Patient Lives Alone: No - Nursing Vital Signs Nursing Vital Signs: Initial Vital Signs Temperature 102.6 F 01/03/21 16:44 Pulse Rate 116 H 01/03/21 16:44 Respiratory Rate 18 01/03/21 16:44 Blood Pressure 149/94 01/03/21 16:44 O2 Sat by Pulse Oximetry 98 01/03/21 16:44 Pain Scale Pain Intensity 2 - Physical Exam General Appearance: no apparent distress, alert Eye Exam: PERRL/EOMI, eyes nml inspection Ears, Nose, Throat Exam: normal ENT inspection, TMs normal, pharynx normal, moist mucous membranes Neck Exam: normal inspection, non-tender, supple, full range of motion Respiratory Exam: normal breath sounds, lungs clear, airway intact, No respiratory distress Cardiovascular Exam: regular rate/rhythm, normal heart sounds, normal peripheral pulses Gastrointestinal/Abdomen Exam: soft, normal bowel sounds, No tenderness, No mass Back Exam: normal inspection, normal range of motion, No CVA tenderness, No vertebral tenderness Extremity Exam: normal inspection, normal range of motion, pelvis stable Neurologic Exam: alert, oriented x 3, cooperative, normal mood/affect, sensation nml, No motor deficits Skin Exam: normal color, warm, dry, No rash Lymphatic Exam: No adenopathy SpO2 Interpretation: normal SpO2: 98 O2 Delivery: Room Air - Course Nursing assessment & vital signs reviewed: Yes - Radiology Exams Chest X-ray Interpretation: Interpreted by me (Normal heart lungs and bony thorax.) Ordered Tests: Active Orders 24 hr Category Date Time Status CHEST 1 VIEW (PORTABLE) Stat Exams 01/03/21 16:57 Taken UA W/RFX UR CULTURE Stat Lab 01/03/21 16:57 Ordered Medication Summary Discontinued Medications Generic Name Dose Route Start Last Admin Trade Name Freq PRN Reason Stop Dose Admin Acetaminophen 975 mg 01/03/21 16:57 01/03/21 17:17 Acetaminophen 325 Mg Tablet PO 01/03/21 16:58 975 mg STAT STA Administration Acetaminophen Confirm 01/03/21 17:14 Acetaminophen 325 Mg Tablet Administered 01/03/21 17:15 Dose 975 mg .ROUTE .STK-MED ONE Ibuprofen 600 mg 01/03/21 16:57 01/03/21 17:16 Ibuprofen 600 Mg Tablet PO 01/03/21 16:58 600 mg STAT ONE Administration Ibuprofen Confirm 01/03/21 17:14 Ibuprofen 600 Mg Tablet Administered 01/03/21 17:15 Dose 600 mg .ROUTE .STK-MED ONE Lab/Rad Data: Laboratory Results 01/03/21 01/03/21 Range/Units 17:30 17:30 Influenza Type A Ag NEGATIVE (NEGATIVE) Influenza Type B Ag NEGATIVE (NEGATIVE) RSV (PCR) NEGATIVE (Negative) SARS-CoV-2 (PCR) NEGATIVE (NEGATIVE) Group A Strep Antibody NOT DETECTED (NEGATIVE) - Progress Progress: improved Progress Note: Patient reassessed. Fever resolved. Vitals are within normal limits. Patient currently feels well. Patient denies myalgias at this time. Influenza negative. RSV negative. Rapid strep negative. Covid negative. Chest x-ray clear. Patient states he is ready to go home. We intended to obtain a urinalysis however patient declined to give us a urine sample. Patient states that he prefers to go home without providing a urine specimen. We will discharge patient home per his request. Patient agrees to follow-up with primary care doctor within 48 hours for reevaluation. Portions of this note were created with voice recognition technology. There may be grammatical, spelling, punctuation or sound alike errors 01/03/21 20:21 Counseled pt/family regarding: lab results, diagnosis, need for follow-up, rad results - Departure Departure Disposition: Home Clinical Impression: Fever, Viral syndrome Condition: Stable Critical Care Time: No Referrals: DOT BURKETT [Primary Care Provider] - Additional Instructions: Discharge/Care Plan DHIRAJ WASHINGTON was seen on 01/03/21 in the Emergency Room. The patient was counseled regarding Diagnosis,Lab results, Imaging studies, need for follow up and when to return to the Emergency Room. Prescriptions given: Discharge Note I have spoken with the patient and/or caregivers. I have explained the patient's condition, diagnosis and treatment plan based on the information available to me at this time. I have answered the patient's and/or caregiver's questions and addressed any concerns. The patient and/or caregivers have as good understanding of the patient's diagnosis, condition and treatment plan as can be expected at this point. The vital signs have been stable. The patient's condition is stable and appropriate for discharge from the emergency department. The patient will pursue further outpatient evaluation with the primary care physician or other designated or consulting physician as outlined in the discharge instructions. The patient and/or caregivers are agreeable to this plan of care and follow-up instructions have been explained in detail. The patient and/or caregivers have received these instruction. The patient/and or caregivers are aware that any significant change in condition or worsening of symptoms patrick uld prompt an immediate return to this or the closest emergency department or call 911. Forms: Work/School Release Form
[2021-01-03 20:34] VITALS: BP 110/76; PULSE 76
--- NOTE | 2021-01-04 08:40 | XRAY ---
Indication: Short of breath, fever, and bodyaches. Comparison: November 16, 2020 Portable chest less inflated and remains clear. Heart not enlarged. Bony thorax intact. No new/acute findings.
== END 2021-01-03 20:35 | disposition home or self-care (01) ==
LOC: ED 16:17
DX: B34.9 Viral infection, unspecified (principal); R50.9 Fever, unspecified
CPT/HCPCS: 0241U; 71045; 87651; 99284; A9270-GY

== ENCOUNTER 2022-09-09 11:58 | Observation (INO) | payer OTHER ==
--- NOTE | 2022-09-09 12:08 | ERPHSYRPT ---
- History of Present Illness Time Seen by Provider: 09/09/22 12:08 Historian: patient Exam Limitations: no limitations Physician History: Patient is a 42-year-old male presents to our ED for evaluation of chest pain. 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 Pain described as a sharp stabbing pain primarily substernal. Pain continued for several minutes. No associated nausea vomiting. No diaphoresis. Patient advised that he has a history of hypertension hypercholesterolemia. Patient is a smoker. patient's father required a cardiac stent at age 50. Patient's grandfather was diagnosed with cardiovascular disease in his 50s. Symptoms when present were mild to moderate in intensity. Symptoms seem to improve with rest. Pain occurred while patient was active. Patient feels well otherwise. He voices no other complaints or concerns at this time. Portions of this note were created with voice recognition technology. There may be grammatical, spelling, punctuation or sound alike errors Timing/Duration: today Activities at Onset: none Quality: sharpness Location: substernal Chest Pain Radiation: no radiation Severity of Pain-Max: moderate Severity of Pain-Current: mild Modifying Factors: Improves With: other (Pain observed with activity. Pain improved with rest) Associated Symptoms: shortness of breath Prior Chest Pain/Cardiac Workup: echocardiography Nitro Today/Relief: no nitro taken today Aspirin Treatment Today: 81 mg x 2 Allergies/Adverse Reactions: venom-honey bee [bee venom (honey bee)] Allergy (Unknown, Verified 09/09/22 12:02) Home Medications: Aspirin 81 gm Chew [Baby Aspirin 81 mg Chew] 1 tab PO DAILY 01/03/21 [History] Carvedilol 3.125 mg [Coreg 3.125 MG] 1 tab PO BID 01/03/21 [History] Hydrochlorothiazide 25 mg [hydroDIURIL 25 MG] 1 tab PO DAILY 09/09/22 [History] Pravastatin Sodium 1 tab PO HS 09/09/22 [History] Hx Tetanus, Diphtheria Vaccination/Date Given: No Hx Influenza Vaccination/Date Given: No Hx Pneumococcal Vaccination/Date Given: No Travel Risk - Vaccine Status Have you recieved a Covid-19 vaccination: No - Review of Systems Constitutional: No Symptoms, No Fever, No Chills Eyes: No Symptoms Ears, Nose, & Throat: No Symptoms Respiratory: No Symptoms, No Cough, No Dyspnea Cardiac: No Symptoms, No Chest Pain, No Edema, No Syncope Abdominal/Gastrointestinal: No Symptoms, No Abdominal Pain, No Nausea, No Vomiting, No Diarrhea Genitourinary Symptoms: No Symptoms, No Dysuria Musculoskeletal: No Symptoms, No Back Pain, No Neck Pain Skin: No Symptoms, No Rash Neurological: No Symptoms, No Dizziness, No Focal Weakness, No Sensory Changes Psychological: No Symptoms Endocrine: No Symptoms Hematologic/Lymphatic: No Symptoms Immunological/Allergic: No Symptoms All Other Systems: Reviewed and Negative - Past Medical History Pertinent Past Medical History: No Neurological History: No Pertinent History ENT History: No Pertinent History Cardiac History: No Pertinent History Respiratory History: No Pertinent History Endocrine Medical History: No Pertinent History Musculoskeletal History: No Pertinent History GI Medical History: No Pertinent History History: No Pertinent History Psycho-Social History: No Pertinent History Male Reproductive Disorders: No Pertinent History - Past Surgical History Past Surgical History: Yes Neuro Surgical History: No Pertinent History Cardiac: No Pertinent History Respiratory: No Pertinent History Gastrointestinal: No Pertinent History Genitourinary: No Pertinent History Musculoskeletal: Orthopedic Surgery Male Surgical History: No Pertinent History Other Surgical History: right shoulder-LABRUM, RT CARPAL TUNNEL - Social History Smoking Status: Current every day smoker How long have you smoked: 20 Exposure to second hand smoke: Yes Drug Use: none Patient Lives Alone: No - Nursing Vital Signs Nursing Vital Signs: Initial Vital Signs Pulse Rate 62 09/09/22 12:00 Respiratory Rate 19 09/09/22 12:00 Blood Pressure 116/74 09/09/22 12:00 O2 Sat by Pulse Oximetry 96 09/09/22 12:00 Pain Scale Pain Intensity 8 - Physical Exam General Appearance: no apparent distress, alert Eye Exam: PERRL/EOMI, eyes nml inspection Ears, Nose, Throat Exam: normal ENT inspection, moist mucous membranes Neck Exam: normal inspection, non-tender, supple, full range of motion Respiratory Exam: normal breath sounds, lungs clear, airway intact, No respiratory distress Cardiovascular Exam: regular rate/rhythm, normal heart sounds, normal peripheral pulses Gastrointestinal/Abdomen Exam: soft, No tenderness, No mass Back Exam: normal inspection, No CVA tenderness, No vertebral tenderness Extremity Exam: normal inspection, normal range of motion Neurologic Exam: alert, oriented x 3, cooperative, normal mood/affect, sensation nml, No motor deficits Skin Exam: normal color, warm, dry SpO2 Interpretation: normal SpO2: 95 O2 Delivery: Room Air - Course Nursing assessment & vital signs reviewed: Yes EKG Interpreted by Me: RATE (Rate 73), Sinus Rhythm, NORMAL AXIS, NORMAL INTERVALS - Radiology Exams Chest X-ray Interpretation: Teleradiologist Report (Negative chest x-ray) Ordered Tests: Active Orders 24 hr Category Date Time Status EKG-ER Only STAT Care 09/09/22 12:04 Active IV Insertion STAT Care 09/09/22 12:04 Active Pulse Oximetry (ED) STAT Care 09/09/22 12:04 Active CHEST 1 VIEW (PORTABLE) Stat Exams 09/09/22 12:06 Completed CBC W DIFF Stat Lab 09/09/22 12:20 Completed CMP Stat Lab 09/09/22 12:20 Completed D-DIMER QUANTITATIVE Stat Lab 09/09/22 12:20 Completed NT PRO BNPII Stat Lab 09/09/22 12:20 Completed TROPONIN Q4H Lab 09/09/22 12:20 Completed TROPONIN Q4H Lab 09/09/22 16:15 Ordered TROPONIN Q4H Lab 09/09/22 20:15 Ordered Transfer Order Routine Transfer 09/09/22 Ordered Medication Summary Discontinued Medications Generic Name Dose Route Start Last Admin Trade Name Freq PRN Reason Stop Dose Admin Aspirin 162 mg 09/09/22 14:23 09/09/22 14:34 Aspirin 81 Mg Tab.Chew PO 09/09/22 14:24 162 mg STAT ONE Administration Aspirin Confirm 09/09/22 14:33 Aspirin 81 Mg Tab.Chew Administered 09/09/22 14:34 Dose 162 mg .ROUTE .STK-MED ONE Nitroglycerin 1 gm 09/09/22 14:23 09/09/22 14:34 Nitroglycerin 1 Gm Packet TOP 09/09/22 14:24 1 gm STAT ONE Administration Nitroglycerin Confirm 09/09/22 14:33 Nitroglycerin 1 Gm Packet Administered 09/09/22 14:34 Dose 1 gm .ROUTE .STK-MED ONE Lab/Rad Data: Laboratory Result Diagrams 09/09/22 12:20 09/09/22 12:20 Laboratory Results 09/09/22 09/09/22 09/09/22 Range/Units 12:20 12:20 12:20 WBC (4.0-10.5) x10^3/uL RBC (4.1-5.6) x10^6/uL Hgb (12.5-18.0) g/dL Hct (42-50) % MCV (78-100) fL MCH (26-32) pg MCHC (32-36) g/dL RDW (11.5-14.0) % Plt Count (150-450) x10^3/uL MPV (7.5-11.0) fL Gran % (36.0-66.0) % Immature Gran % (Auto) (0.00-0.4) % Nucleat RBC Rel Count (0.00-0.1) % Eos # (Auto) (0-0.5) x10^3/uL Immature Gran # (Auto) (0.00-0.03) x10^3u/L Absolute Lymphs (auto) (1.0-4.6) x10^3/uL Absolute Monos (auto) (0.0-1.3) x10^3/uL Absolute Nucleated RBC (0.00-0.01) x10^3u/L Lymphocytes % (24.0-44.0) % Monocytes % (0.0-12.0) % Eosinophils % (0.00-5.0) % Basophils % (0.0-0.4) % Absolute Granulocytes (1.4-6.9) x10^3/uL Basophils # (0-0.4) x10^3/uL D-Dimer 0.20 (0.0-0.50) mg/L Sodium 140 (137-145) mmol/L Potassium 3.7 (3.5-5.1) mmol/L Chloride 104 (98-107) mmol/L Carbon Dioxide 27 (22-30) mmol/L Anion Gap 13.1 (5-15) MEQ/L BUN 18 (9-20) mg/dL Creatinine 0.93 (0.66-1.25) mg/dL Estimated GFR > 60.0 ML/MIN Glucose 102 (74-106) mg/dL Calcium 9.4 (8.4-10.2) mg/dL Total Bilirubin 0.50 (0.2-1.3) mg/dL AST 29 (17-59) U/L ALT 30 (0-50) U/L Alkaline Phosphatase 51 (38-126) U/L Troponin I < 0.012 (0.000-0.034) ng/mL NT-Pro-B Natriuret Pep < 20.0 (<300) pg/mL Serum Total Protein 6.8 (6.3-8.2) g/dL Albumin 4.3 (3.5-5.0) g/dL 09/09/22 Range/Units 12:20 WBC 9.9 (4.0-10.5) x10^3/uL RBC 5.38 (4.1-5.6) x10^6/uL Hgb 15.3 (12.5-18.0) g/dL Hct 46.5 (42-50) % MCV 86.4 (78-100) fL MCH 28.4 (26-32) pg MCHC 32.9 (32-36) g/dL RDW 12.8 (11.5-14.0) % Plt Count 248 (150-450) x10^3/uL MPV 9.4 (7.5-11.0) fL Gran % 65.3 (36.0-66.0) % Immature Gran % (Auto) 0.3 (0.00-0.4) % Nucleat RBC Rel Count 0.0 (0.00-0.1) % Eos # (Auto) 0.17 (0-0.5) x10^3/uL Immature Gran # (Auto) 0.03 (0.00-0.03) x10^3u/L Absolute Lymphs (auto) 2.50 (1.0-4.6) x10^3/uL Absolute Monos (auto) 0.65 (0.0-1.3) x10^3/uL Absolute Nucleated RBC 0.00 (0.00-0.01) x10^3u/L Lymphocytes % 25.4 (24.0-44.0) % Monocytes % 6.6 (0.0-12.0) % Eosinophils % 1.7 (0.00-5.0) % Basophils % 0.7 (0.0-0.4) % Absolute Granulocytes 6.43 (1.4-6.9) x10^3/uL Basophils # 0.07 (0-0.4) x10^3/uL D-Dimer (0.0-0.50) mg/L Sodium (137-145) mmol/L Potassium (3.5-5.1) mmol/L Chloride (98-107) mmol/L Carbon Dioxide (22-30) mmol/L Anion Gap (5-15) MEQ/L BUN (9-20) mg/dL Creatinine (0.66-1.25) mg/dL Estimated GFR ML/MIN Glucose (74-106) mg/dL Calcium (8.4-10.2) mg/dL Total Bilirubin (0.2-1.3) mg/dL AST (17-59) U/L ALT (0-50) U/L Alkaline Phosphatase (38-126) U/L Troponin I (0.000-0.034) ng/mL NT-Pro-B Natriuret Pep (<300) pg/mL Serum Total Protein (6.3-8.2) g/dL Albumin (3.5-5.0) g/dL - Progress Progress: improved Air Movement: good Progress Note: Patient is a 42-year-old male presents to our ED for evaluation of chest pain and shortness of breath. Pain started while he was active at work. Pain improved with rest. Physical exam essentially nonremarkable. Testing ordered includes EKG which reveals normal sinus rhythm. CBC CMP negative. D-dimer negative. BNP negative. Troponin negative. Patient took 2 aspirin 81 mg prior to arrival. Patient received 2 additional 81 mg aspirin. No nitro administered prior to arrival. Nitropaste administered in our ED. Patient is a smoker, history of hypertension hyperlipidemia. Patient's family history significant. Patient's grandfather of cardiovascular disease at age 50. Patient's father had a stent placed in his 50s as well. Heart score calculated. Heart score is 4 which would indicate need for admission. Patient will be admitted for further evaluation and treatment. Complexity of problem addressed is moderate acute, complicated with systemic manifestations No critical care time Complexity of data reviewed and analyzed is extensive. Test ordered. Test reviewed and analyzed by Dr. Garner. Chest x-ray report reviewed and clinically correlated. Plan of care/patient management discussed with our hospitalist who excepts admission to observation. Risk of complication and or risk morbidity/mortality patient management is high. Patient will require hospitalization for further evaluation and treatment. Patient agrees to admission [facility] for further evaluation and treatment. Plan of care established via shared decision making. Vital stable. Portions of this note were created with voice recognition technology. There may be grammatical, spelling, punctuation or sound alike errors 09/09/22 14:31 Case discussed with at 2:35. Dr. Brink accepts admission to observation. Portions of this note were created with voice recognition technology. There may be grammatical, spelling, punctuation or sound alike errors 09/09/22 14:36 Blood Culture(s) Obtained: No Antibiotics given: No Counseled pt/family regarding: lab results, diagnosis, rad results - Departure Departure Disposition: Observation Clinical Impression: Chest pain, ACS (acute coronary syndrome) Condition: Stable Critical Care Time: No Referrals: DOT BURKETT [ACTIVE STAFF] - Follow up/PCP as directed
[2022-09-09 12:24] LABS: Absolute Neutrophil Ct (ANC) 6.43 x10^3/uL (1.4-6.9); BASOPHIL % 0.7 % (0.0-0.4); Basophil (Absolute #) 0.07 x10^3/uL (0-0.4); Eosinophil % 1.7 % (0.00-5.0); Eosinophil (Absolute #) 0.17 x10^3/uL (0-0.5); Hematocrit 46.5 % (42-50); Hemoglobin 15.3 g/dL (12.5-18.0); IMMATURE GRAN # 0.03 x10^3u/L (0.00-0.03); IMMATURE GRAN % 0.3 % (0.00-0.4); Lymphocytes % 25.4 % (24.0-44.0); Mean Cell Volume 86.4 fL (78-100); Mean Corpuscular Hemoglobin 28.4 pg (26-32); Mean Corpuscular Hgb Concent. 32.9 g/dL (32-36); Mean Platelet Volume 9.4 fL (7.5-11.0); Monocyte (Absolute #) 0.65 x10^3/uL (0.0-1.3); Monocytes % 6.6 % (0.0-12.0); Neutrophil % 65.3 % (36.0-66.0); Platelet Count 248 x10^3/uL (150-450); Red Blood Count 5.38 x10^6/uL (4.1-5.6); Red Cell Distribution Width 12.8 % (11.5-14.0); White Blood Count 9.9 x10^3/uL (4.0-10.5)
--- NOTE | 2022-09-09 12:39 | XRAY ---
Indication: Pain. Comparison: January 03, 2021 Portable chest again demonstrates normal heart, lungs, and bony thorax with a few incidental tiny right perihilar calcified granulomas.
[2022-09-09 12:49] LABS: ALBUMIN 4.3 g/dL (3.5-5.0); ALKALINE PHOSPHATASE 51 U/L (38-126); ANION GAP 13.1 MEQ/L (5-15); BLOOD UREA NITROGEN 18 mg/dL (9-20); CHLORIDE 104 mmol/L (98-107); Calcium 9.4 mg/dL (8.4-10.2); Carbon Dioxide 27 mmol/L (22-30); Creatinine 1 0.93 mg/dL (0.66-1.25); EST GLOMERULAR FILTRATION RATE > 60.0 ML/MIN; Glucose 102 mg/dL (74-106); NT PRO BNPII < 20.0 pg/mL (<300); Potassium 3.7 mmol/L (3.5-5.1); SGOT/AST 29 U/L (17-59); SGPT/ALT 30 U/L (0-50); SODIUM 140 mmol/L (137-145); Total Protein 6.8 g/dL (6.3-8.2)
[2022-09-09] MEDS ORDERED: BABY ASPIRIN 81 MG CHEW PO ONE (14:23)
[2022-09-09] MEDS ORDERED: NITRO-BID 2% UD PACKETS TOP ONE (14:23)
[2022-09-09] MEDS ORDERED: BABY ASPIRIN 81 MG CHEW ONE (14:33)
[2022-09-09] MEDS ORDERED: NITRO-BID 2% UD PACKETS ONE (14:33)
[2022-09-09] MEDS ORDERED: Senokot-S Tablet PO PRN (15:52)
[2022-09-09] MEDS ORDERED: TYLENOL 325 MG PO PRN (15:52)
[2022-09-09] MEDS ORDERED: Zofran 4 MG/2 ML VIAL IV PRN (15:52)
[2022-09-09] MEDS ORDERED: MAALOX ES 30 ML UNIT DOSE PO PRN (15:52)
[2022-09-09] MEDS ORDERED: MILK OF MAGNESIA 30 ML PO PRN (15:52)
--- NOTE | 2022-09-09 18:58 | PCM.HP ---
History of Present Illness - Chief Complaint Chief Complaint: Chest pain Date: 09/09/22 History of Present Illness: 42-year-old man with history of hypertension and dyslipidemia, who presents with chest pain. This morning, he had a sudden onset of substernal, sharp, stabbing chest pain, associated with dyspnea, while he was exerting himself at work. Pain lasted for about 3 hours, with no relief by acetaminophen or aspirin, perhaps only partial relief by rest. He denies any associated nausea, numbness, or diaphoresis. Eventually had to come to the emergency room. He had a similar pain 2 years ago lasting for a few days, when he was under a lot of stress from her prior job and had severe hypertension. He smokes 1/2 pack/day, and has a strong family history of coronary disease, with a paternal grandfather with two-vessel bypass in his early 40s, and a father with PCI at 50. He denies fevers, chills, cough, nausea, or diarrhea. Currently, he is free of chest pain or dyspnea. - Review of Systems Respiratory: Short Of Breath Cardiac: Chest Pain All Other Systems: Reviewed and Negative Medications & Allergies Home Medications: Home Medication List Aspirin 81 gm Chew [Baby Aspirin 81 mg Chew] 1 tab PO DAILY 01/03/21 [History Confirmed 09/09/22] Carvedilol 3.125 mg [Coreg 3.125 MG] 1 tab PO BID 01/03/21 [History Confirmed 09/09/22] Hydrochlorothiazide 25 mg [hydroDIURIL 25 MG] 1 tab PO DAILY 09/09/22 [History Confirmed 09/09/22] Pravastatin Sodium 1 tab PO HS 09/09/22 [History Confirmed 09/09/22] Allergies/Adverse Reactions: Allergies Allergy/AdvReac Type Severity Reaction Status Date / Time venom-honey bee Allergy Unknown Verified 09/09/22 12:02 [bee venom (honey bee)] - Past Medical History Past Medical History: No Neurological History: No Pertinent History ENT History: No Pertinent History Cardiac History: High Cholesterol, Hypertension Respiratory History: No Pertinent History Endocrine Medical History: No Pertinent History Musculoskelatal History: No Pertinent History GI Medical History: No Pertinent History History: No Pertinent History Pyscho-Social History: No Pertinent History Male Reproductive Disorders: No Pertinent History - Past Surgical History Past Surgical History: Yes Neuro Surgical History: No Pertinent History Cardiac History: No Pertinent History Respiratory Surgery: No Pertinent History GI Surgical History: No Pertinent History Genitourinary Surgical Hx: No Pertinent History Musculskeletal Surgical Hx: Orthopedic Surgery Male Surgical History: No Pertinent History Other Surgical History: right shoulder-LABRUM, RT CARPAL TUNNEL - Social History Smoking Status: Current every day smoker How long have you smoked: 25 Exposure to second hand smoke: Yes Alcohol: None Drug Use: none Significant Family History: heart disease - Physical Exam Vital Signs: Vital Signs - 24 hr Temp Pulse Resp BP BP Pulse Ox 09/09/22 16:40 56 L 17 09/09/22 16:30 73 13 09/09/22 16:20 61 13 09/09/22 16:10 68 32 H 09/09/22 16:00 54 L 7 L 98 09/09/22 15:55 56 L 9 L 09/09/22 15:54 97.8 F 52 L 17 116/74 96 09/09/22 15:30 52 L 17 107/64 96 09/09/22 15:00 50 L 17 113/61 95 09/09/22 14:39 95 09/09/22 14:30 56 L 19 112/77 97 09/09/22 14:00 67 16 104/68 98 09/09/22 13:30 65 17 112/66 98 09/09/22 13:00 56 L 18 102/73 96 09/09/22 12:30 56 L 18 110/67 96 09/09/22 12:14 98 09/09/22 12:03 97.8 F 70 17 116/74 98 09/09/22 12:00 62 19 116/74 96 General Appearance: no apparent distress Neurologic Exam: alert, oriented x 3, sensation nml, EOM palsy, No motor deficits Ears, Nose, Throat Exam: normal ENT inspection Respiratory Exam: normal breath sounds, lungs clear, No respiratory distress Cardiovascular Exam: regular rate/rhythm, normal heart sounds, No murmur Gastrointestinal/Abdomen Exam: soft, normal bowel sounds, No tenderness, No distention Skin Exam: normal color, No rash Results - Labs Lab/Micro Results: Lab Results-Last 24 Hours 09/09/22 09/09/22 09/09/22 Range/Units 12:20 12:20 12:20 WBC 9.9 (4.0-10.5) x10^3/uL RBC 5.38 (4.1-5.6) x10^6/uL Hgb 15.3 (12.5-18.0) g/dL Hct 46.5 (42-50) % MCV 86.4 (78-100) fL MCH 28.4 (26-32) pg MCHC 32.9 (32-36) g/dL RDW 12.8 (11.5-14.0) % Plt Count 248 (150-450) x10^3/uL MPV 9.4 (7.5-11.0) fL Gran % 65.3 (36.0-66.0) % Immature Gran % (Auto) 0.3 (0.00-0.4) % Nucleat RBC Rel Count 0.0 (0.00-0.1) % Eos # (Auto) 0.17 (0-0.5) x10^3/uL Immature Gran # (Auto) 0.03 (0.00-0.03) x10^3u/L Absolute Lymphs (auto) 2.50 (1.0-4.6) x10^3/uL Absolute Monos (auto) 0.65 (0.0-1.3) x10^3/uL Absolute Nucleated RBC 0.00 (0.00-0.01) x10^3u/L Lymphocytes % 25.4 (24.0-44.0) % Monocytes % 6.6 (0.0-12.0) % Eosinophils % 1.7 (0.00-5.0) % Basophils % 0.7 (0.0-0.4) % Absolute Granulocytes 6.43 (1.4-6.9) x10^3/uL Basophils # 0.07 (0-0.4) x10^3/uL D-Dimer 0.20 (0.0-0.50) mg/L Sodium 140 (137-145) mmol/L Potassium 3.7 (3.5-5.1) mmol/L Chloride 104 (98-107) mmol/L Carbon Dioxide 27 (22-30) mmol/L Anion Gap 13.1 (5-15) MEQ/L BUN 18 (9-20) mg/dL Creatinine 0.93 (0.66-1.25) mg/dL Estimated GFR > 60.0 ML/MIN Glucose 102 (74-106) mg/dL Calcium 9.4 (8.4-10.2) mg/dL Total Bilirubin 0.50 (0.2-1.3) mg/dL AST 29 (17-59) U/L ALT 30 (0-50) U/L Alkaline Phosphatase 51 (38-126) U/L Troponin I (0.000-0.034) ng/mL NT-Pro-B Natriuret Pep < 20.0 (<300) pg/mL Serum Total Protein 6.8 (6.3-8.2) g/dL Albumin 4.3 (3.5-5.0) g/dL 09/09/22 09/09/22 Range/Units 12:20 14:44 WBC (4.0-10.5) x10^3/uL RBC (4.1-5.6) x10^6/uL Hgb (12.5-18.0) g/dL Hct (42-50) % MCV (78-100) fL MCH (26-32) pg MCHC (32-36) g/dL RDW (11.5-14.0) % Plt Count (150-450) x10^3/uL MPV (7.5-11.0) fL Gran % (36.0-66.0) % Immature Gran % (Auto) (0.00-0.4) % Nucleat RBC Rel Count (0.00-0.1) % Eos # (Auto) (0-0.5) x10^3/uL Immature Gran # (Auto) (0.00-0.03) x10^3u/L Absolute Lymphs (auto) (1.0-4.6) x10^3/uL Absolute Monos (auto) (0.0-1.3) x10^3/uL Absolute Nucleated RBC (0.00-0.01) x10^3u/L Lymphocytes % (24.0-44.0) % Monocytes % (0.0-12.0) % Eosinophils % (0.00-5.0) % Basophils % (0.0-0.4) % Absolute Granulocytes (1.4-6.9) x10^3/uL Basophils # (0-0.4) x10^3/uL D-Dimer (0.0-0.50) mg/L Sodium (137-145) mmol/L Potassium (3.5-5.1) mmol/L Chloride (98-107) mmol/L Carbon Dioxide (22-30) mmol/L Anion Gap (5-15) MEQ/L BUN (9-20) mg/dL Creatinine (0.66-1.25) mg/dL Estimated GFR ML/MIN Glucose (74-106) mg/dL Calcium (8.4-10.2) mg/dL Total Bilirubin (0.2-1.3) mg/dL AST (17-59) U/L ALT (0-50) U/L Alkaline Phosphatase (38-126) U/L Troponin I < 0.012 < 0.012 (0.000-0.034) ng/mL NT-Pro-B Natriuret Pep (<300) pg/mL Serum Total Protein (6.3-8.2) g/dL Albumin (3.5-5.0) g/dL - Radiology Impressions Radiology Exams & Impressions: Radiology Procedures Category Date Time Status CHEST 1 VIEW (PORTABLE) Stat Exams 09/09/22 12:06 Completed CXR: No infiltrate, effusion, or edema (images personally reviewed). - Other Procedures and Tests Respiratory Therapy 09/09/22 20:00 EKG ROUTINE 09/10/22 05:00 EKG ROUTINE 09/11/22 05:00 EKG ROUTINE 09/12/22 05:00 EKG ROUTINE Assessment/Plan (1) Chest pain Current Visit: Yes Status: Acute Assessment & Plan: 42-year-old man with history of hypertension and dyslipidemia, here with chest pain. ## Chest pain exertional, but not relieved by rest. Patient has multiple risk factors including his hypertension, smoking, and strong family history. Initial troponins and EKGs were unrevealing. - Admit for observation under telemetry - Serial troponins - Check lipid panel in the morning - Continue aspirin 81 - Will need outpatient follow-up with cyber special agent for stress testing ## Hypertension blood pressure controlled - Continue home Coreg 3.125, HCTZ 25 ## Dyslipidemia - Continue home pravastatin, but will likely benefit from increased dose given his increased risk CODE STATUS: Full code Prophylaxis: Short stay, ambulate Entirety of encounter took place via telemedicine. Patient consented to telemedicine. Code(s): R07.9 - CHEST PAIN, UNSPECIFIED Telemedicine Encounter - Telemedicine Encounter Telemedicine Encounter: The entirety of this encounter was performed via Telemedicine"
[2022-09-09] MEDS ORDERED: ZOCOR 20MG PO SCH (22:00)
[2022-09-10] MEDS: Coreg 3.125 MG PO SCH ×2 (01:02→08:59)
[2022-09-10 06:01] LABS: Risk Ratio 6.7
[2022-09-10 07:17] VITALS: BP 122/66; PULSE 52; O2SAT 93
[2022-09-10] MEDS ORDERED: ECOTRIN 81 MG PO SCH (10:00)
[2022-09-10] MEDS ORDERED: hydroDIURIL 25 MG PO SCH (10:00)
--- NOTE | 2022-09-10 10:26 | PCM.DS ---
Discharge Summary Date of Admission: 09/09/22 15:40 Date of Discharge: 09/10/2022 Admitting Physician: NELSON CARRINGTON MD Primary Care Provider: UZIEL SY Allergies Allergies venom-honey bee [bee venom (honey bee)] Allergy (Unknown, Verified 09/09/22 12:02) Hospital Summary - Hospital Course Hospital Course: 42-year-old with history hypertension and dyslipidemia, who presented with sudden onset of substernal, stabbing, chest pain associated with dyspnea, occurring while at work. He has a history of tobacco use and a strong family history of premature CAD. No associated symptoms other than the dyspnea. No relief by rest. He was admitted under observation for chest pain evaluation. Serial EKGs were unremarkable, and serial troponins were negative. Patient had no chest pain or dyspnea after arrival in the ED. He will be discharged to follow-up with his provider relations coordinator Dr. Gaspar, currently planned for Sunday 09/17, for likely outpatient stress testing. Entirety of encounter took place via telemedicine. Patient consented to telemedicine. Greater than 30 minutes managing discharge. - Vitals & Intake/Output Vital Signs: Vital Signs Temperature 97.5 F 09/10/22 07:17 Pulse Rate 52 L 09/10/22 07:17 Respiratory Rate 14 09/10/22 07:17 Blood Pressure 122/66 09/10/22 07:17 O2 Sat by Pulse Oximetry 93 L 09/10/22 07:17 Intake & Output: Intake & Output 09/07/22 09/08/22 09/09/22 09/10/22 11:59 11:59 11:59 11:59 Intake Total 1320 Balance 1320 Weight 82.2 kg - Lab Result Diagrams: 09/09/22 12:20 09/09/22 12:20 Lab Results-Last 24 Hrs: Lab Results-Last 24 Hours 09/09/22 09/09/22 09/09/22 Range/Units 12:20 12:20 12:20 WBC 9.9 (4.0-10.5) x10^3/uL RBC 5.38 (4.1-5.6) x10^6/uL Hgb 15.3 (12.5-18.0) g/dL Hct 46.5 (42-50) % MCV 86.4 (78-100) fL MCH 28.4 (26-32) pg MCHC 32.9 (32-36) g/dL RDW 12.8 (11.5-14.0) % Plt Count 248 (150-450) x10^3/uL MPV 9.4 (7.5-11.0) fL Gran % 65.3 (36.0-66.0) % Immature Gran % (Auto) 0.3 (0.00-0.4) % Nucleat RBC Rel Count 0.0 (0.00-0.1) % Eos # (Auto) 0.17 (0-0.5) x10^3/uL Immature Gran # (Auto) 0.03 (0.00-0.03) x10^3u/L Absolute Lymphs (auto) 2.50 (1.0-4.6) x10^3/uL Absolute Monos (auto) 0.65 (0.0-1.3) x10^3/uL Absolute Nucleated RBC 0.00 (0.00-0.01) x10^3u/L Lymphocytes % 25.4 (24.0-44.0) % Monocytes % 6.6 (0.0-12.0) % Eosinophils % 1.7 (0.00-5.0) % Basophils % 0.7 (0.0-0.4) % Absolute Granulocytes 6.43 (1.4-6.9) x10^3/uL Basophils # 0.07 (0-0.4) x10^3/uL D-Dimer 0.20 (0.0-0.50) mg/L Sodium 140 (137-145) mmol/L Potassium 3.7 (3.5-5.1) mmol/L Chloride 104 (98-107) mmol/L Carbon Dioxide 27 (22-30) mmol/L Anion Gap 13.1 (5-15) MEQ/L BUN 18 (9-20) mg/dL Creatinine 0.93 (0.66-1.25) mg/dL Estimated GFR > 60.0 ML/MIN Glucose 102 (74-106) mg/dL Calcium 9.4 (8.4-10.2) mg/dL Total Bilirubin 0.50 (0.2-1.3) mg/dL AST 29 (17-59) U/L ALT 30 (0-50) U/L Alkaline Phosphatase 51 (38-126) U/L Troponin I (0.000-0.034) ng/mL NT-Pro-B Natriuret Pep < 20.0 (<300) pg/mL Serum Total Protein 6.8 (6.3-8.2) g/dL Albumin 4.3 (3.5-5.0) g/dL Triglycerides (30-150) mg/dL Cholesterol (50-200) mg/dL LDL Cholesterol (30-100) mg/dL HDL Cholesterol (40-60) mg/dL Heart Disease Risk Ratio 09/09/22 09/09/22 09/09/22 Range/Units 12:20 14:44 20:12 WBC (4.0-10.5) x10^3/uL RBC (4.1-5.6) x10^6/uL Hgb (12.5-18.0) g/dL Hct (42-50) % MCV (78-100) fL MCH (26-32) pg MCHC (32-36) g/dL RDW (11.5-14.0) % Plt Count (150-450) x10^3/uL MPV (7.5-11.0) fL Gran % (36.0-66.0) % Immature Gran % (Auto) (0.00-0.4) % Nucleat RBC Rel Count (0.00-0.1) % Eos # (Auto) (0-0.5) x10^3/uL Immature Gran # (Auto) (0.00-0.03) x10^3u/L Absolute Lymphs (auto) (1.0-4.6) x10^3/uL Absolute Monos (auto) (0.0-1.3) x10^3/uL Absolute Nucleated RBC (0.00-0.01) x10^3u/L Lymphocytes % (24.0-44.0) % Monocytes % (0.0-12.0) % Eosinophils % (0.00-5.0) % Basophils % (0.0-0.4) % Absolute Granulocytes (1.4-6.9) x10^3/uL Basophils # (0-0.4) x10^3/uL D-Dimer (0.0-0.50) mg/L Sodium (137-145) mmol/L Potassium (3.5-5.1) mmol/L Chloride (98-107) mmol/L Carbon Dioxide (22-30) mmol/L Anion Gap (5-15) MEQ/L BUN (9-20) mg/dL Creatinine (0.66-1.25) mg/dL Estimated GFR ML/MIN Glucose (74-106) mg/dL Calcium (8.4-10.2) mg/dL Total Bilirubin (0.2-1.3) mg/dL AST (17-59) U/L ALT (0-50) U/L Alkaline Phosphatase (38-126) U/L Troponin I < 0.012 < 0.012 < 0.012 (0.000-0.034) ng/mL NT-Pro-B Natriuret Pep (<300) pg/mL Serum Total Protein (6.3-8.2) g/dL Albumin (3.5-5.0) g/dL Triglycerides (30-150) mg/dL Cholesterol (50-200) mg/dL LDL Cholesterol (30-100) mg/dL HDL Cholesterol (40-60) mg/dL Heart Disease Risk Ratio 09/10/22 Range/Units 05:10 WBC (4.0-10.5) x10^3/uL RBC (4.1-5.6) x10^6/uL Hgb (12.5-18.0) g/dL Hct (42-50) % MCV (78-100) fL MCH (26-32) pg MCHC (32-36) g/dL RDW (11.5-14.0) % Plt Count (150-450) x10^3/uL MPV (7.5-11.0) fL Gran % (36.0-66.0) % Immature Gran % (Auto) (0.00-0.4) % Nucleat RBC Rel Count (0.00-0.1) % Eos # (Auto) (0-0.5) x10^3/uL Immature Gran # (Auto) (0.00-0.03) x10^3u/L Absolute Lymphs (auto) (1.0-4.6) x10^3/uL Absolute Monos (auto) (0.0-1.3) x10^3/uL Absolute Nucleated RBC (0.00-0.01) x10^3u/L Lymphocytes % (24.0-44.0) % Monocytes % (0.0-12.0) % Eosinophils % (0.00-5.0) % Basophils % (0.0-0.4) % Absolute Granulocytes (1.4-6.9) x10^3/uL Basophils # (0-0.4) x10^3/uL D-Dimer (0.0-0.50) mg/L Sodium (137-145) mmol/L Potassium (3.5-5.1) mmol/L Chloride (98-107) mmol/L Carbon Dioxide (22-30) mmol/L Anion Gap (5-15) MEQ/L BUN (9-20) mg/dL Creatinine (0.66-1.25) mg/dL Estimated GFR ML/MIN Glucose (74-106) mg/dL Calcium (8.4-10.2) mg/dL Total Bilirubin (0.2-1.3) mg/dL AST (17-59) U/L ALT (0-50) U/L Alkaline Phosphatase (38-126) U/L Troponin I (0.000-0.034) ng/mL NT-Pro-B Natriuret Pep (<300) pg/mL Serum Total Protein (6.3-8.2) g/dL Albumin (3.5-5.0) g/dL Triglycerides 203 H (30-150) mg/dL Cholesterol 178 (50-200) mg/dL LDL Cholesterol 113 H (30-100) mg/dL HDL Cholesterol 27 L (40-60) mg/dL Heart Disease Risk Ratio 6.7 - Radiology Exams Ordered Rad Exams-Entire Visit: Radiology Procedures Category Date Time Status CHEST 1 VIEW (PORTABLE) Stat Exams 09/09/22 12:06 Completed CXR: No infiltrate, effusion, or edema. - Procedures and Test Procedures and Tests throughout Hospitalization: Therapy Orders & Screens 09/09/22 20:00 EKG ROUTINE Comment: Diagnosis: Chest pain, ACS, shortness of breath 09/10/22 05:00 EKG ROUTINE Comment: Diagnosis: Chest pain, ACS, shortness of breath 09/11/22 05:00 EKG ROUTINE Comment: Diagnosis: Chest pain, ACS, shortness of breath 09/12/22 05:00 EKG ROUTINE Comment: Diagnosis: Chest pain, ACS, shortness of breath Discharge Exam General Appearance: no apparent distress Neurologic Exam: alert, oriented x 3 Eye Exam: eyes nml inspection Ears, Nose, Throat Exam: normal ENT inspection Respiratory Exam: normal breath sounds, lungs clear, No respiratory distress Cardiovascular Exam: regular rate/rhythm, normal heart sounds, No murmur Skin Exam: normal color, No rash Final Diagnosis/Problem List - Final Discharge Diagnosis/Problem (1) Chest pain Current Visit: Yes Status: Acute Code(s): R07.9 - CHEST PAIN, UNSPECIFIED - Discharge Disposition: Home, Self-Care Condition: Stable Prescriptions: Continue Carvedilol 3.125 mg [Coreg 3.125 MG] 1 tab PO BID Aspirin 81 gm Chew [Baby Aspirin 81 mg Chew] 1 tab PO DAILY Pravastatin Sodium 1 tab PO HS Hydrochlorothiazide 25 mg [hydroDIURIL 25 MG] 1 tab PO DAILY Instructions: Chest Pain (DC) Additional Instructions: KEEP YOUR FOLLOW UP APPOINTMENT WITH DR. GASPAR FOR Thursday09/17/22. Follow up with: UZIEL SY MD [Primary Care Provider] - 09/22/22 10:45 am Forms: Discharge Instructions
== END 2022-09-10 10:44 | disposition home or self-care (01) ==
LOC: ED 11:58 → MED SURG 15:40
PROVIDERS: ADMIT Internal Medicine; ATTEND Internal Medicine
DX: R07.9 Chest pain, unspecified (principal); I10 Essential (primary) hypertension; E78.5 Hyperlipidemia, unspecified; Z72.0 Tobacco use; Z82.49 Family history of ischemic heart disease and other diseases of the circulatory system; Z79.899 Other long term (current) drug therapy; Z20.828 Contact with and (suspected) exposure to other viral communicable diseases
CPT/HCPCS: 36000; 36415; 71045; 80053; 80061; 83721; 83880; 84484; 85025; 85379; 93005; 94760; 99284; Q3014; 93268; A9270-GY; G0378

== ENCOUNTER 2023-05-12 09:57 | Observation (INO) | payer OTHER ==
--- NOTE | 2023-05-12 10:24 | ERPHSYRPT ---
- History of Present Illness Time Seen by Provider: 05/12/23 10:10 Source: patient Exam Limitations: no limitations Patient Subjective Stated Complaint: Pt states "Yesterday around 2 pm I got a really bad headache and the right side of my face really hurt and my speech was a little slurred and I was having a hard time opening my right eye." Triage Nursing Assessment: Pt presented alert and oriented X 3, skin pwd. Pt ambulates with an upright steady gait, able to speak in clear full sentences. 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 Patient had a headache yesterday. Patient observed he had slurred speech at that time. Today patient reports some dizziness particularly when he walks. believes his speech is slurred. No nausea vomiting or diaphoresis. Symptoms are moderate in intensity. No specific worsening or improving factors. Patient denies a history of the same. He voices no other complaints or concerns at this time. Portions of this note were created with voice recognition technology. There may be grammatical, spelling, punctuation or sound alike errors Timing/Duration: yesterday Severity: moderate Modifying Factors: Improves With: nothing Associated Symptoms: denies symptoms Allergies/Adverse Reactions: venom-honey bee [bee venom (honey bee)] Allergy (Unknown, Verified 09/09/22 12:02) Home Medications: Aspirin 81 gm Chew [Baby Aspirin 81 mg Chew] 1 tab PO DAILY 01/03/21 [Hist ory] Carvedilol 3.125 mg [Coreg 3.125 MG] 1 tab PO BID 01/03/21 [History] Pravastatin Sodium 1 tab PO HS 09/09/22 [History] Metformin HCl 500 mg [Glucophage 500 MG] 500 mg PO BIDWM 05/12/23 [History] Hx Tetanus, Diphtheria Vaccination/Date Given: No Hx Influenza Vaccination/Date Given: No Hx Pneumococcal Vaccination/Date Given: No Immunizations Up to Date: No Travel Risk - International Travel Have you traveled outside of the country in past 3 weeks: No - Coronavirus Screening Are you exhibiting any of the following symptoms?: No Close contact with a COVID-19 positive Pt in past 14-21 Days: No - Vaccine Status Have you recieved a Covid-19 vaccination: No - Review of Systems Constitutional: No Symptoms, No Fever, No Chills Eyes: No Symptoms Ears, Nose, & Throat: No Symptoms Respiratory: No Symptoms, No Cough, No Dyspnea Cardiac: No Symptoms, No Chest Pain, No Edema, No Syncope Abdominal/Gastrointestinal: No Symptoms, No Abdominal Pain, No Nausea, No Vomiting, No Diarrhea Genitourinary Symptoms: No Symptoms, No Dysuria Musculoskeletal: No Symptoms, No Back Pain, No Neck Pain Skin: No Symptoms, No Rash Neurological: No Symptoms, No Dizziness, No Focal Weakness, No Sensory Changes Psychological: No Symptoms Endocrine: No Symptoms Hematologic/Lymphatic: No Symptoms Immunological/Allergic: No Symptoms All Other Systems: Reviewed and Negative - Past Medical History Pertinent Past Medical History: Yes Neurological History: No Pertinent History ENT History: No Pertinent History Cardiac History: High Cholesterol, Hypertension Respiratory History: No Pertinent History Endocrine Medical History: Other Musculoskeletal History: No Pertinent History GI Medical History: No Pertinent History History: No Pertinent History Psycho-Social History: No Pertinent History Male Reproductive Disorders: No Pertinent History Other Medical History: pre diabetic - Past Surgical History Past Surgical History: Yes Neuro Surgical History: No Pertinent History Cardiac: No Pertinent History Respiratory: No Pertinent History Gastrointestinal: No Pertinent History Genitourinary: No Pertinent History Musculoskeletal: Orthopedic Surgery Male Surgical History: No Pertinent History Other Surgical History: right shoulder-LABRUM, RT CARPAL TUNNEL - Social History Smoking Status: Current every day smoker How long have you smoked: 25 Exposure to second hand smoke: Yes Drug Use: none Patient Lives Alone: No Significant Family History: heart disease - Nursing Vital Signs Nursing Vital Signs: Initial Vital Signs Temperature 97.5 F 05/12/23 10:00 Pulse Rate 75 05/12/23 10:00 Respiratory Rate 20 05/12/23 10:00 Blood Pressure 153/103 05/12/23 10:00 O2 Sat by Pulse Oximetry 99 05/12/23 10:00 Pain Scale Pain Intensity 0 - Physical Exam General Appearance: no apparent distress, alert Eye Exam: PERRL/EOMI, eyes nml inspection Ears, Nose, Throat Exam: normal ENT inspection, TMs normal, pharynx normal, moist mucous membranes Neck Exam: normal inspection, non-tender, supple, full range of motion Respiratory Exam: normal breath sounds, lungs clear, airway intact, No respiratory distress Cardiovascular Exam: regular rate/rhythm, normal heart sounds, normal peripheral pulses Gastrointestinal/Abdomen Exam: soft, normal bowel sounds, No tenderness, No mass Back Exam: normal inspection, normal range of motion, No CVA tenderness, No vertebral tenderness Extremity Exam: normal inspection, normal range of motion, pelvis stable Neurologic Exam: alert, oriented x 3, cooperative, normal mood/affect, sensation nml, other (Slightly slurred speech), No motor deficits Skin Exam: normal color, warm, dry, No rash Lymphatic Exam: No adenopathy SpO2 Interpretation: normal SpO2: 99 O2 Delivery: Room Air - Course Nursing assessment & vital signs reviewed: Yes EKG Interpreted by Me: RATE (66), Sinus Rhythm, NORMAL AXIS, NORMAL INTERVALS - CT Exams Head CT Interpretation: Tele-radiologist Report (No acute intracranial process observed) Ordered Tests: Active Orders 24 hr Category Date Time Status 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 STAT Care 05/12/23 10:14 Active EKG-ER Only STAT Care 05/12/23 10:14 Active IV Insertion STAT Care 05/12/23 10:14 Active Pulse Oximetry (ED) STAT Care 05/12/23 10:14 Active Tele-Health Consult ROUTINE Cons 05/12/23 11:34 Active HEAD WITHOUT CONTRAST [CT] Stat Exams 05/12/23 10:13 Completed CBC W DIFF Stat Lab 05/12/23 10:37 Completed CMP Stat Lab 05/12/23 10:37 Completed TROPONIN Q4H Lab 05/12/23 10:37 Completed TROPONIN Q4H Lab 05/12/23 14:15 Ordered TROPONIN Q4H Lab 05/12/23 18:15 Ordered Transfer Order Routine Transfer 05/12/23 Ordered Medication Summary Generic Name Dose Route Start Last Admin Trade Name Freq PRN Reason Stop Dose Admin Sodium Chloride 1,000 mls @ 75 mls/hr 05/12/23 10:15 05/12/23 11:18 Sodium Chloride 0.9% 1000 Ml IV 06/11/23 10:14 75 mls/hr .[id number] THEODORA Administration Discontinued Medications Generic Name Dose Route Start Last Admin Trade Name Freq PRN Reason Stop Dose Admin Aspirin 324 mg 05/12/23 11:50 05/12/23 12:22 Aspirin 81 Mg Tab.Chew PO 05/12/23 11:51 324 mg STAT ONE Administration Aspirin Confirm 05/12/23 12:21 Aspirin 81 Mg Tab.Chew Administered 05/12/23 12:22 Dose 324 mg .ROUTE .STK-MED ONE Lab/Rad Data: Laboratory Result Diagrams 05/12/23 10:37 05/12/23 10:37 Laboratory Results 05/12/23 05/12/23 05/12/23 Range/Units 10:37 10:37 10:37 WBC 9.1 (4.0-10.5) x10^3/uL RBC 5.68 H (4.1-5.6) x10^6/uL Hgb 16.7 (12.5-18.0) g/dL Hct 50.7 H (42-50) % MCV 89.3 (78-100) fL MCH 29.4 (26-32) pg MCHC 32.9 (32-36) g/dL RDW 12.5 (11.5-14.0) % Plt Count 268 (150-450) x10^3/uL MPV 9.1 (7.5-11.0) fL Gran % 62.8 (36.0-66.0) % Immature Gran % (Auto) 0.4 (0.00-0.4) % Nucleat RBC Rel Count 0.0 (0.00-0.1) % Eos # (Auto) 0.21 (0-0.5) x10^3/uL Immature Gran # (Auto) 0.04 H (0.00-0.03) x10^3u/L Absolute Lymphs (auto) 2.44 (1.0-4.6) x10^3/uL Absolute Monos (auto) 0.62 (0.0-1.3) x10^3/uL Absolute Nucleated RBC 0.00 (0.00-0.01) x10^3u/L Lymphocytes % 26.7 (24.0-44.0) % Monocytes % 6.8 (0.0-12.0) % Eosinophils % 2.3 (0.00-5.0) % Basophils % 1.0 (0.0-0.4) % Absolute Granulocytes 5.74 (1.4-6.9) x10^3/uL Basophils # 0.09 (0-0.4) x10^3/uL Sodium 138 (137-145) mmol/L Potassium 4.5 (3.5-5.1) mmol/L Chloride 107 (98-107) mmol/L Carbon Dioxide 24 (22-30) mmol/L Anion Gap 11.8 (5-15) MEQ/L BUN 11 (9-20) mg/dL Creatinine 0.80 (0.66-1.25) mg/dL Estimated GFR 114.0 ML/MIN Glucose 108 H (74-106) mg/dL Calcium 10.1 (8.4-10.2) mg/dL Total Bilirubin 0.60 (0.2-1.3) mg/dL AST 23 (17-59) U/L ALT 25 (0-50) U/L Alkaline Phosphatase 62 (38-126) U/L Troponin I < 0.012 (0.000-0.034) ng/mL Serum Total Protein 7.3 (6.3-8.2) g/dL Albumin 4.8 (3.5-5.0) g/dL - Progress Progress: improved Progress Note: Case discussed with neurologist at approximately 12:37 PM. He advised hospitalization for inpatient CTA head neck and MRI/MRA. Aspirin administered. IV fluids infusing. Plan of care discussed with patient. He agrees to admission to [facility] for further evaluation and tala atment. Portions of this note were created with voice recognition technology. There may be grammatical, spelling, punctuation or sound alike errors 05/12/23 12:46 Case discussed with hospitalist at 1:[address]Colan junior Accepts admission to observation. 43-year-old male presents to our ED for evaluation of strokelike symptoms that began yesterday. Physical exam here is essentially nonremarkable. Teleneurologist evaluated patient and feels patient requires hospitalization for further imaging. IV fluids infusing. Patient received aspirin. Laboratory workup essentially noncontributory. Portions of this note were created with voice recognition technology. There may be grammatical, spelling, punctuation or sound alike errors Complexity problem addressed is moderate acute complicated No critical care time Complex of data reviewed and analyzed is extensive. Test ordered test reviewed for results analyzed and correlated clinically with history and physical examination. Management discussed with hospitalist and neurologist. Risk complication and a risk morbidity/mortality of patient management is high. Patient requires hospitalization for further evaluation and treatment. Vital stable. Time spent to admit patient is approximately 15 minutes. Plan of care established for shared decision making. Portions of this note were created with voice recognition technology. There may be grammatical, spelling, punctuation or sound alike errors 05/12/23 Counseled pt/family regarding: lab results, diagnosis, rad results - Departure Departure Disposition: Observation Clinical Impression: Stroke Condition: Stable Critical Care Time: No Referrals: UZIEL SY MD [Primary Care Provider] - Follow up/PCP as directed
--- NOTE | 2023-05-12 10:57 | XRAY ---
Indication: Right facial numbness, dizziness, and slurred speech 2 days. Multiple contiguous axial images obtained through the head without contrast. Comparison: None Normal appearing brain parenchyma, ventricles, and bony calvarium. Visualized paranasal sinuses and mastoid air cells are clear. Impression: Normal CT head without contrast exam.
[2023-05-12 11:03] LABS: Absolute Neutrophil Ct (ANC) 5.74 x10^3/uL (1.4-6.9); Basophil (Absolute #) 0.09 x10^3/uL (0-0.4); Eosinophil % 2.3 % (0.00-5.0); Eosinophil (Absolute #) 0.21 x10^3/uL (0-0.5); Hematocrit 50.7 % (42-50); Hemoglobin 16.7 g/dL (12.5-18.0); IMMATURE GRAN # 0.04 x10^3u/L (0.00-0.03); IMMATURE GRAN % 0.4 % (0.00-0.4); Lymphocyte (Absolute #) 2.44 x10^3/uL (1.0-4.6); Lymphocytes % 26.7 % (24.0-44.0); Mean Cell Volume 89.3 fL (78-100); Mean Corpuscular Hemoglobin 29.4 pg (26-32); Mean Corpuscular Hgb Concent. 32.9 g/dL (32-36); Mean Platelet Volume 9.1 fL (7.5-11.0); Monocyte (Absolute #) 0.62 x10^3/uL (0.0-1.3); Monocytes % 6.8 % (0.0-12.0); Neutrophil % 62.8 % (36.0-66.0); Platelet Count 268 x10^3/uL (150-450); Red Blood Count 5.68 x10^6/uL (4.1-5.6); Red Cell Distribution Width 12.5 % (11.5-14.0); White Blood Count 9.1 x10^3/uL (4.0-10.5)
[2023-05-12] MEDS ORDERED: Sodium Chloride 0.9% 1000 ML 1,000 ML ONE (11:16)
[2023-05-12 11:17] LABS: ALBUMIN 4.8 g/dL (3.5-5.0); ANION GAP 11.8 MEQ/L (5-15); BILIRUBIN,TOTAL 0.6 mg/dL (0.2-1.3); Calcium 10.1 mg/dL (8.4-10.2); Creatinine 1 0.8 mg/dL (0.66-1.25); Potassium 4.5 mmol/L (3.5-5.1); Total Protein 7.3 g/dL (6.3-8.2)
[2023-05-12] MEDS: Sodium Chloride 0.9% 1000 ML 1,000 ML IV SCH (11:18)
[2023-05-12] MEDS ORDERED: BABY ASPIRIN 81 MG CHEW ONE (12:21)
[2023-05-12] MEDS: BABY ASPIRIN 81 MG CHEW PO ONE (12:22)
--- NOTE | 2023-05-12 14:43 | PCM.HP ---
History of Present Illness - Chief Complaint Chief Complaint: Stroke, subacute Date: 05/12/23 History of Present Illness: is a 43 year old male with PMHX smoker 1& 1/2 ppd, hyperlipidemia, hypertension, and type II DM. He presents to our ED as a referral from [facility] for evaluation of possible stroke yesterday. Patient had a headache yesterday with slurred speech at that time around 2pm. Pt states the H/A was more right sided facial pain. explained he has slurred speech this morning as well. This has since resolved as well as slurred speech Today patient reports some dizziness particularly when he walks. He denies drug or alcohol use. Symptoms are moderate in intensity. No specific worsening or improving factors. Patient denies a history of the same. He voices no other complaints or concerns at this time. CT of head is negative. neurology consulted for further evaluation. MRI of brain, echo, and carotid duplex ordered. He denies CP, SOB, abd. pain, N/V/D. - Review of Systems Constitutional: No Fever, No Chills Eyes: No Symptoms Ears, Nose, & Throat: No Symptoms Respiratory: No Cough, No Short Of Breath Cardiac: No Chest Pain, No Edema, No Syncope Abdominal/Gastrointestinal: No Abdominal Pain, No Nausea, No Vomiting, No Diarrhea Genitourinary Symptoms: No Dysuria Musculoskeletal: No Back Pain, No Neck Pain Skin: No Rash Neurological: Headache, Speech Changes, No Dizziness, No Focal Weakness, No Sensory Changes Psychological: No Symptoms Endocrine: No Symptoms Hematologic/Lymphatic: No Symptoms Immunological/Allergic: No Symptoms Medications & Allergies Home Medications: Home Medication List Carvedilol 3.125 mg [Coreg 3.125 MG] 12.5 mg PO BID 01/03/21 [History Confirmed 05/12/23] Pravastatin Sodium 1 tab PO HS 09/09/22 [History Confirmed 05/12/23] Aspirin EC 325 mg [Ecotrin 325 MG] 325 mg PO DAILY 05/12/23 [History Confirmed 05/12/23] Metformin HCl 500 mg [Glucophage 500 MG] 500 mg PO BIDWM 05/12/23 [History Confirmed 05/12/23] Allergies/Adverse Reactions: Allergies Allergy/AdvReac Type Severity Reaction Status Date / Time venom-honey bee Allergy Unknown Verified 05/12/23 13:57 [bee venom (honey bee)] - Past Medical History Past Medical History: Yes Neurological History: No Pertinent History ENT History: No Pertinent History Cardiac History: High Cholesterol, Hypertension Respiratory History: No Pertinent History Endocrine Medical History: Other Musculoskelatal History: No Pertinent History GI Medical History: No Pertinent History History: No Pertinent History Pyscho-Social History: No Pertinent History Male Reproductive Disorders: No Pertinent History Comment: pre diabetic - Past Surgical History Past Surgical History: Yes Neuro Surgical History: No Pertinent History Cardiac History: No Pertinent History Respiratory Surgery: No Pertinent History GI Surgical History: No Pertinent History Genitourinary Surgical Hx: No Pertinent History Musculskeletal Surgical Hx: Orthopedic Surgery Male Surgical History: No Pertinent History Other Surgical History: right shoulder-LABRUM, RT CARPAL TUNNEL Significant Family History: heart disease - Social History Smoking Status: Current every day smoker How long have you smoked: 25 Exposure to second hand smoke: Yes Alcohol: None Drug Use: none - Social Determinants of Health Will the patient participate in the screening: Declined to provide - Physical Exam Vital Signs: Vital Signs - 24 hr Temp Pulse Resp BP BP Pulse Ox 05/12/23 14:00 96 05/12/23 13:43 97 F 64 19 129/72 96 05/12/23 13:20 99 05/12/23 13:00 55 L 15 130/79 96 05/12/23 12:30 59 L 19 95/78 96 05/12/23 12:00 76 15 113/67 99 05/12/23 11:33 61 19 115/69 97 05/12/23 10:38 97 05/12/23 10:03 68 24 153/103 97 05/12/23 10:00 97.5 F 75 20 153/103 99 General Appearance: no apparent distress, alert Neurologic Exam: alert, oriented x 3, cooperative, normal mood/affect, nml station & gait, sensation nml, other (right arm pronater drift), No motor deficits Eye Exam: PERRL/EOMI, eyes nml inspection Ears, Nose, Throat Exam: normal ENT inspection, TMs normal, pharynx normal, moist mucous membranes Neck Exam: normal inspection, non-tender, supple, full range of motion Respiratory Exam: normal breath sounds, lungs clear, No respiratory distress Cardiovascular Exam: regular rate/rhythm, normal heart sounds, normal peripheral pulses Gastrointestinal/Abdomen Exam: soft, normal bowel sounds, No tenderness, No mass Back Exam: normal inspection, normal range of motion, No CVA tenderness, No vertebral tenderness Extremity Exam: normal inspection, normal range of motion, pelvis stable Skin Exam: normal color, warm, dry, No rash Lymphatic Exam: No adenopathy Results - Labs Lab/Micro Results: Lab Results-Last 24 Hours 05/12/23 05/12/23 05/12/23 Range/Units 10:37 10:37 10:37 WBC 9.1 (4.0-10.5) x10^3/uL RBC 5.68 H (4.1-5.6) x10^6/uL Hgb 16.7 (12.5-18.0) g/dL Hct 50.7 H (42-50) % MCV 89.3 (78-100) fL MCH 29.4 (26-32) pg MCHC 32.9 (32-36) g/dL RDW 12.5 (11.5-14.0) % Plt Count 268 (150-450) x10^3/uL MPV 9.1 (7.5-11.0) fL Gran % 62.8 (36.0-66.0) % Immature Gran % (Auto) 0.4 (0.00-0.4) % Nucleat RBC Rel Count 0.0 (0.00-0.1) % Eos # (Auto) 0.21 (0-0.5) x10^3/uL Immature Gran # (Auto) 0.04 H (0.00-0.03) x10^3u/L Absolute Lymphs (auto) 2.44 (1.0-4.6) x10^3/uL Absolute Monos (auto) 0.62 (0.0-1.3) x10^3/uL Absolute Nucleated RBC 0.00 (0.00-0.01) x10^3u/L Lymphocytes % 26.7 (24.0-44.0) % Monocytes % 6.8 (0.0-12.0) % Eosinophils % 2.3 (0.00-5.0) % Basophils % 1.0 (0.0-0.4) % Absolute Granulocytes 5.74 (1.4-6.9) x10^3/uL Basophils # 0.09 (0-0.4) x10^3/uL Sodium 138 (137-145) mmol/L Potassium 4.5 (3.5-5.1) mmol/L Chloride 107 (98-107) mmol/L Carbon Dioxide 24 (22-30) mmol/L Anion Gap 11.8 (5-15) MEQ/L BUN 11 (9-20) mg/dL Creatinine 0.80 (0.66-1.25) mg/dL Estimated GFR 114.0 ML/MIN Glucose 108 H (74-106) mg/dL Calcium 10.1 (8.4-10.2) mg/dL Total Bilirubin 0.60 (0.2-1.3) mg/dL AST 23 (17-59) U/L ALT 25 (0-50) U/L Alkaline Phosphatase 62 (38-126) U/L Troponin I < 0.012 (0.000-0.034) ng/mL Serum Total Protein 7.3 (6.3-8.2) g/dL Albumin 4.8 (3.5-5.0) g/dL - Radiology Impressions Radiology Exams & Impressions: Radiology Procedures Category Date Time Status HEAD WITHOUT CONTRAST [CT] Stat Exams 05/12/23 10:13 Completed Assessment/Plan (1) Headache Current Visit: Yes Status: Acute Assessment & Plan: - CT negative for acute concern - neuro eval - resolved - MRI brain - Echo - Carotid duplex - + pronator drift R Arm - ASA - cont statin Code(s): R51.9 - HEADACHE, UNSPECIFIED (2) Slurred speech Current Visit: Yes Status: Acute Assessment & Plan: - resolved - episode yesterday and this AM Code(s): R47.81 - SLURRED SPEECH (3) HTN (hypertension) Current Visit: Yes Status: Acute Assessment & Plan: - BP stable - resume home meds Code(s): I10 - ESSENTIAL (PRIMARY) HYPERTENSION (4) Hyperlipidemia Current Visit: Yes Status: Acute Assessment & Plan: - Continue statin Code(s): E78.5 - HYPERLIPIDEMIA, UNSPECIFIED (5) Smoker Current Visit: Yes Status: Chronic Assessment & Plan: - advised cessation - nicotine patch PRN - refused for now Code(s): F17.200 - NICOTINE DEPENDENCE, UNSPECIFIED, UNCOMPLICATED (6) Type II diabetes mellitus Current Visit: Yes Status: Chronic Assessment & Plan: - Continue metformin - A1C 04/01/22 5.48- controlled - new A1C VTE: lovenox Next of Kin: D/c plan: 1-2 days Code status: Full code
[2023-05-12] MEDS ORDERED: TYLENOL 325 MG PO PRN (15:05)
[2023-05-12] MEDS: Nicoderm CQ 21 MG TOP SCH (16:25)
[2023-05-12] MEDS: Glucophage 500 MG PO SCH (16:26)
--- NOTE | 2023-05-12 16:50 | XRAY ---
Indication: Severe headache. Slurred speech. TIA. Normal same day CT head. Sagittal, coronal, and axial MRI brain performed without contrast using T1, T2, FLAIR, diffusion, and ADC sequences. Comparison: None Ventriculosulcal pattern appears symmetric. No acute intracranial hemorrhage, abnormal extra-axial fluid collection, or mass effect. Diffusion images negative for restricted signal. Fourth ventricle is midline without hydrocephalus. 7/8 cranial nerve complex bilaterally symmetric. Normal flow void signal within the major intracerebral circulation. Normal appearing cranial cervical junction and sella turcica. Visualized paranasal sinuses are clear. Impression: Normal MRI brain without contrast exam.
--- NOTE | 2023-05-12 16:52 | XRAY ---
Indication: Severe headache. Slurred speech. TIA. Normal same day CT head. Multi-slab 3-D [id number] MRA [place] performed. Comparison: None Distal internal carotid arteries are bilaterally symmetric without critical stenosis or obstruction. Normal carotid terminus with normal branching A1 and M1 segments bilaterally. Posterior circulation demonstrates normal MRA appearance to distal left/right vertebral, basilar, left/right posterior cerebral, left/right superior cerebellar, and left/right anterior inferior cerebellar arteries. Impression: Normal MRA [place] of [place].
[2023-05-12] MEDS ORDERED: NON-FORMULARY ITEM (Pravastatin Sodium [Pravastatin Sodium] 40 MG Tablet) PO SCH (22:00)
[2023-05-12] MEDS: Coreg 3.125 MG PO SCH (22:30)
[2023-05-12] MEDS: ZOCOR 20MG PO SCH (22:30)
[2023-05-13 07:10] LABS: Hematocrit 47.6 % (42-50); Mean Corpuscular Hemoglobin 29.6 pg (26-32); Mean Corpuscular Hgb Concent. 33.6 g/dL (32-36); Mean Platelet Volume 9.1 fL (7.5-11.0); Platelet Count 249 x10^3/uL (150-450); Red Blood Count 5.41 x10^6/uL (4.1-5.6); Red Cell Distribution Width 12.7 % (11.5-14.0); White Blood Count 9.1 x10^3/uL (4.0-10.5)
[2023-05-13 08:42] LABS: ALBUMIN 4.1 g/dL (3.5-5.0); ANION GAP 8.3 MEQ/L (5-15); BILIRUBIN,TOTAL 0.5 mg/dL (0.2-1.3); Calcium 9.6 mg/dL (8.4-10.2); Creatinine 1 0.79 mg/dL (0.66-1.25); EST GLOMERULAR FILTRATION RATE 114.5 ML/MIN; Potassium 4.6 mmol/L (3.5-5.1); Risk Ratio 6.7; Total Protein 6.3 g/dL (6.3-8.2)
[2023-05-13] MEDS: ENOXAPARIN SODIUM SQ SCH (09:53)
[2023-05-13] MEDS: Ecotrin 325 MG PO SCH (09:53)
--- NOTE | 2023-05-13 11:10 | XRAY ---
Indication: TIA. Two-dimensional sonogram and color Doppler imaging carotid arteries of the neck performed. Comparison: None Examination right carotid circulation demonstrates minimal eccentric soft plaquing origin external carotid artery. Remaining common carotid, carotid bulb, and internal carotid arteries are widely patent. PSV CCA is 83 cm/s. PSV ICA is 71 cm/s. ICA/CCA ratio is 0.9. Normal antegrade vertebral artery flow. Examination left carotid circulation demonstrates minimal heterogeneous plaquing at the level of the bulb. Remaining common carotid, internal carotid, and external carotid arteries are widely patent. PSV CCA is 95 cm/s. PSV ICA is 79 cm/s. ICA/CCA ratio is 0.8. Normal antegrade vertebral artery flow. Impression: Minimal arteriosclerotic plaquing bilaterally as detailed. Velocity measurements and ratios negative for hemodynamically significant flow limiting stenosis.
--- NOTE | 2023-05-13 11:17 | PCM.DS ---
Discharge Summary Date of Admission: 05/12/23 13:37 Date of Discharge: 05/13/23 Admitting Physician: CONSTANCE ALVAREZ MD Consults: Consults on Case 05/12/23 11:34 Tele-Health Consult ROUTINE Primary Care Provider: UZIEL SY Allergies Allergies venom-honey bee [bee venom (honey bee)] Allergy (Unknown, Verified 05/12/23 13:57) Hospital Summary - Hospital Course Hospital Course: 05/12/23 is a 43 year old male with PMHX smoker 1& 1/2 ppd, hyperlipidemia, hypertension, and type II DM. He presents to our ED as a referral from [facility] for evaluation of possible stroke yesterday. Patient had a headache yesterday with slurred speech at that time around 2pm. Pt states the H/A was more right sided facial pain. explained he has slurred speech this morning as well. This has since resolved as well as slurred speech Today patient reports some dizziness particularly when he walks. He denies drug or alcohol use. Symptoms are moderate in intensity. No specific worsening or improving factors. Patient denies a history of the same. He voices no other complaints or concerns at this time. CT of head is negative. neurology consulted for further evaluation. MRI of brain, echo, and carotid duplex ordered. He denies CP, SOB, abd. pain, N/V/D. 05/13/23 Pt resting in bed. He has had no overnight events. MRI, MRA and head CT all negative. Echo- will need f/u OP, EF 52% per him tech. OP Cardiology consult based on EF. Carotid duplex non-concerning. Will make f/u OP appointments for neurology, cardiology, and PCP. Advised smoking cessation. He deneis any further concerns at this time and ready to d/c. - Vitals & Intake/Output Vital Signs: Vital Signs Temperature 96.9 F 05/13/23 07:00 Pulse Rate 65 05/13/23 07:00 Respiratory Rate 15 05/13/23 07:00 Blood Pressure 119/61 05/13/23 07:00 O2 Sat by Pulse Oximetry 97 05/13/23 07:00 Intake & Output: Intake & Output 05/10/23 05/11/23 05/12/23 05/13/23 11:59 11:59 11:59 11:59 Intake Total 1440 Balance 1440 Weight 88.904 kg 85.8 kg - Lab Result Diagrams: 05/13/23 07:00 05/13/23 07:00 Lab Results-Last 24 Hrs: Lab Results-Last 24 Hours 05/12/23 05/12/23 05/12/23 Range/Units 10:37 10:37 10:37 WBC 9.1 (4.0-10.5) x10^3/uL RBC 5.68 H (4.1-5.6) x10^6/uL Hgb 16.7 (12.5-18.0) g/dL Hct 50.7 H (42-50) % MCV 89.3 (78-100) fL MCH 29.4 (26-32) pg MCHC 32.9 (32-36) g/dL RDW 12.5 (11.5-14.0) % Plt Count 268 (150-450) x10^3/uL MPV 9.1 (7.5-11.0) fL Gran % 62.8 (36.0-66.0) % Immature Gran % (Auto) 0.4 (0.00-0.4) % Nucleat RBC Rel Count 0.0 (0.00-0.1) % Eos # (Auto) 0.21 (0-0.5) x10^3/uL Immature Gran # (Auto) 0.04 H (0.00-0.03) x10^3u/L Absolute Lymphs (auto) 2.44 (1.0-4.6) x10^3/uL Absolute Monos (auto) 0.62 (0.0-1.3) x10^3/uL Absolute Nucleated RBC 0.00 (0.00-0.01) x10^3u/L Lymphocytes % 26.7 (24.0-44.0) % Monocytes % 6.8 (0.0-12.0) % Eosinophils % 2.3 (0.00-5.0) % Basophils % 1.0 (0.0-0.4) % Absolute Granulocytes 5.74 (1.4-6.9) x10^3/uL Basophils # 0.09 (0-0.4) x10^3/uL Sodium 138 (137-145) mmol/L Potassium 4.5 (3.5-5.1) mmol/L Chloride 107 (98-107) mmol/L Carbon Dioxide 24 (22-30) mmol/L Anion Gap 11.8 (5-15) MEQ/L BUN 11 (9-20) mg/dL Creatinine 0.80 (0.66-1.25) mg/dL Estimated GFR 114.0 ML/MIN Glucose 108 H (74-106) mg/dL Calcium 10.1 (8.4-10.2) mg/dL Total Bilirubin 0.60 (0.2-1.3) mg/dL AST 23 (17-59) U/L ALT 25 (0-50) U/L Alkaline Phosphatase 62 (38-126) U/L Troponin I < 0.012 (0.000-0.034) ng/mL Serum Total Protein 7.3 (6.3-8.2) g/dL Albumin 4.8 (3.5-5.0) g/dL Triglycerides (30-150) mg/dL Cholesterol (50-200) mg/dL LDL Cholesterol (30-100) mg/dL HDL Cholesterol (40-60) mg/dL Heart Disease Risk Ratio 05/12/23 05/12/23 05/13/23 Range/Units 14:32 18:35 07:00 WBC 9.1 (4.0-10.5) x10^3/uL RBC 5.41 (4.1-5.6) x10^6/uL Hgb 16.0 (12.5-18.0) g/dL Hct 47.6 (42-50) % MCV 88.0 (78-100) fL MCH 29.6 (26-32) pg MCHC 33.6 (32-36) g/dL RDW 12.7 (11.5-14.0) % Plt Count 249 (150-450) x10^3/uL MPV 9.1 (7.5-11.0) fL Gran % (36.0-66.0) % Immature Gran % (Auto) (0.00-0.4) % Nucleat RBC Rel Count (0.00-0.1) % Eos # (Auto) (0-0.5) x10^3/uL Immature Gran # (Auto) (0.00-0.03) x10^3u/L Absolute Lymphs (auto) (1.0-4.6) x10^3/uL Absolute Monos (auto) (0.0-1.3) x10^3/uL Absolute Nucleated RBC (0.00-0.01) x10^3u/L Lymphocytes % (24.0-44.0) % Monocytes % (0.0-12.0) % Eosinophils % (0.00-5.0) % Basophils % (0.0-0.4) % Absolute Granulocytes (1.4-6.9) x10^3/uL Basophils # (0-0.4) x10^3/uL Sodium (137-145) mmol/L Potassium (3.5-5.1) mmol/L Chloride (98-107) mmol/L Carbon Dioxide (22-30) mmol/L Anion Gap (5-15) MEQ/L BUN (9-20) mg/dL Creatinine (0.66-1.25) mg/dL Estimated GFR ML/MIN Glucose (74-106) mg/dL Calcium (8.4-10.2) mg/dL Total Bilirubin (0.2-1.3) mg/dL AST (17-59) U/L ALT (0-50) U/L Alkaline Phosphatase (38-126) U/L Troponin I < 0.012 < 0.012 (0.000-0.034) ng/mL Serum Total Protein (6.3-8.2) g/dL Albumin (3.5-5.0) g/dL Triglycerides (30-150) mg/dL Cholesterol (50-200) mg/dL LDL Cholesterol (30-100) mg/dL HDL Cholesterol (40-60) mg/dL Heart Disease Risk Ratio 05/13/23 Range/Units 07:00 WBC (4.0-10.5) x10^3/uL RBC (4.1-5.6) x10^6/uL Hgb (12.5-18.0) g/dL Hct (42-50) % MCV (78-100) fL MCH (26-32) pg MCHC (32-36) g/dL RDW (11.5-14.0) % Plt Count (150-450) x10^3/uL MPV (7.5-11.0) fL Gran % (36.0-66.0) % Immature Gran % (Auto) (0.00-0.4) % Nucleat RBC Rel Count (0.00-0.1) % Eos # (Auto) (0-0.5) x10^3/uL Immature Gran # (Auto) (0.00-0.03) x10^3u/L Absolute Lymphs (auto) (1.0-4.6) x10^3/uL Absolute Monos (auto) (0.0-1.3) x10^3/uL Absolute Nucleated RBC (0.00-0.01) x10^3u/L Lymphocytes % (24.0-44.0) % Monocytes % (0.0-12.0) % Eosinophils % (0.00-5.0) % Basophils % (0.0-0.4) % Absolute Granulocytes (1.4-6.9) x10^3/uL Basophils # (0-0.4) x10^3/uL Sodium 137 (137-145) mmol/L Potassium 4.6 (3.5-5.1) mmol/L Chloride 107 (98-107) mmol/L Carbon Dioxide 26 (22-30) mmol/L Anion Gap 8.3 (5-15) MEQ/L BUN 12 (9-20) mg/dL Creatinine 0.79 (0.66-1.25) mg/dL Estimated GFR 114.5 ML/MIN Glucose 119 H (74-106) mg/dL Calcium 9.6 (8.4-10.2) mg/dL Total Bilirubin 0.50 (0.2-1.3) mg/dL AST 20 (17-59) U/L ALT 21 (0-50) U/L Alkaline Phosphatase 59 (38-126) U/L Troponin I (0.000-0.034) ng/mL Serum Total Protein 6.3 (6.3-8.2) g/dL Albumin 4.1 (3.5-5.0) g/dL Triglycerides 183 H (30-150) mg/dL Cholesterol 188 (50-200) mg/dL LDL Cholesterol 132 H (30-100) mg/dL HDL Cholesterol 28 L (40-60) mg/dL Heart Disease Risk Ratio 6.7 - Radiology Exams Ordered Rad Exams-Entire Visit: Radiology Procedures Category Date Time Status CAROTID BILATERAL [US] Routine Exams 05/13/23 14:57 Taken ECHO W/2D AND DOPPLER [US] Routine Exams 05/13/23 14:57 Taken HEAD WITHOUT CONTRAST [CT] Stat Exams 05/12/23 10:13 Completed MRA BRAIN WITHOUT CONTRAST [MRI] Routine Exams 05/12/23 15:50 Completed MRI BRAIN W & W/O CONTRAST [MRI] Routine Exams 05/12/23 14:55 Completed Final Diagnosis/Problem List - Final Discharge Diagnosis/Problem (1) Headache Current Visit: Yes Status: Acute Code(s): R51.9 - HEADACHE, UNSPECIFIED (2) Slurred speech Current Visit: Yes Status: Acute Code(s): R47.81 - SLURRED SPEECH (3) HTN (hypertension) Current Visit: Yes Status: Acute Code(s): I10 - ESSENTIAL (PRIMARY) HYPERTENSION (4) Hyperlipidemia Current Visit: Yes Status: Acute Code(s): E78.5 - HYPERLIPIDEMIA, UNSPECIFIED (5) Smoker Current Visit: Yes Status: Chronic Code(s): F17.200 - NICOTINE DEPENDENCE, UNSPECIFIED, UNCOMPLICATED (6) Type II diabetes mellitus Current Visit: Yes Status: Chronic Assessment & Plan: (1) Headache Current Visit: Yes Status: Acute Assessment & Plan: - CT negative for acute concern - neuro eval - resolved - MRI brain - Echo - Carotid duplex - + pronator drift R Arm - ASA - cont statin 05/13 - CT, MRI, MRA negative - Carotid US nonconcerning - Echo EF 52% per him tech- f/u Op with cardiology - F/u with neurology and PCP OP Code(s): R51.9 - HEADACHE, UNSPECIFIED (2) Slurred speech Current Visit: Yes Status: Acute Assessment & Plan: - resolved - episode yesterday and this AM 05/13 no overnight events Code(s): R47.81 - SLURRED SPEECH (3) HTN (hypertension) Current Visit: Yes Status: Acute Assessment & Plan: - BP stable - resume home meds Code(s): I10 - ESSENTIAL (PRIMARY) HYPERTENSION (4) Hyperlipidemia Current Visit: Yes Status: Acute Assessment & Plan: - Continue statin Code(s): E78.5 - HYPERLIPIDEMIA, UNSPECIFIED (5) Smoker Current Visit: Yes Status: Chronic Assessment & Plan: - advised cessation - nicotine patch PRN - refused for now Code(s): F17.200 - NICOTINE DEPENDENCE, UNSPECIFIED, UNCOMPLICATED (6) Type II diabetes mellitus Current Visit: Yes Status: Chronic Assessment & Plan: - Continue metformin - A1C 04/01/22 5.48- controlled (7) Hyperlipidemia, mixed Current Visit: Yes Status: Acute Assessment & Plan: - Advised diet and exercise control - Advised smoking cessation Code(s): E78.2 - MIXED HYPERLIPIDEMIA - Discharge Disposition: Home, Self-Care Condition: Stable Prescriptions: No Action Carvedilol 3.125 mg [Coreg 3.125 MG] 12.5 mg PO BID Pravastatin Sodium 1 tab PO HS Metformin HCl 500 mg [Glucophage 500 MG] 500 mg PO BIDWM Aspirin EC 325 mg [Ecotrin 325 MG] 325 mg PO DAILY Follow up with: UZIEL SY MD [Primary Care Provider] - JOE COOK DO [NON-STAFF PHY W/O PRIVILEGES] -
[2023-05-13 11:30] VITALS: BP 117/60; PULSE 68; RESP 19; TEMP 98.5; O2SAT 96
--- NOTE | 2023-05-13 13:42 | PCM.DCORD ---
- Discharge Discharge Date: 05/13/23 Disposition: Home, Self-Care Condition: Stable Prescriptions: No Action Carvedilol 3.125 mg [Coreg 3.125 MG] 12.5 mg PO BID Pravastatin Sodium 1 tab PO HS Metformin HCl 500 mg [Glucophage 500 MG] 500 mg PO BIDWM Aspirin EC 325 mg [Ecotrin 325 MG] 325 mg PO DAILY Instructions: Stroke (DC), Transient Ischemic Attack (DC) Follow up with: UZIEL SY MD [Primary Care Provider] - 05/27/23 10:45 am JOE COOK DO [NON-STAFF PHY W/O PRIVILEGES] - Office will call patient GARETH PAEZ PA [NON-STAFF PHY W/O PRIVILEGES] - 06/02/23 10:30 am (CLIENT SERVICE ADMINISTRATOR FOR DR. GASPAR ) Forms: Discharge Instructions
== END 2023-05-13 13:50 | disposition home or self-care (01) ==
LOC: ED 09:57 → MED SURG 13:37
PROVIDERS: ADMIT Internal Medicine; ATTEND Internal Medicine
DX: R51.9 Headache, unspecified (principal); R47.81 Slurred speech; I10 Essential (primary) hypertension; E78.5 Hyperlipidemia, unspecified; F17.200 Nicotine dependence, unspecified, uncomplicated; E11.9 Type 2 diabetes mellitus without complications; E78.2 Mixed hyperlipidemia; Z79.899 Other long term (current) drug therapy; Z20.828 Contact with and (suspected) exposure to other viral communicable diseases
CPT/HCPCS: 36000; 36415; 70450; 70544; 70553; 80053; 80061; 83721; 84484; 85025; 85027; 93005; 93041; 93306; 93880; 94760; 99285; Q3014; 93268; A9270-GY; G0378

== ENCOUNTER 2024-01-28 17:23 | Emergency (ER) | payer OTHER ==
[2024-01-28 18:04] VITALS: RESP 18; TEMP 97.5
[2024-01-28 19:25] VITALS: BP 138/86; PULSE 80; O2SAT 99
--- NOTE | 2024-01-28 19:25 | ERPHSYRPT ---
- History of Present Illness Time Seen by Provider: 01/28/24 18:12 Source: patient Exam Limitations: no limitations Patient Subjective Stated Complaint: Left knee/lower leg pain Triage Nursing Assessment: Patient brought back to ED per w/c and transferred self to bed. Patient A+O X3. Patient's skin pink, warm and dry. Patient states he tripped over a curb and felt a "pop" behind left knee about 25 minutes prior to arrival. Patient staates he started having numbness and tingling below left knee. Left foot noted to be cold, but has pulse. Physician History: Patient is here with left knee pain. Patient states that he stepped off of the curb and felt a pop in his left knee. This was approximately 25 minutes prior to arrival. This was behind his left knee. Patient states that he started having numbness and tingling radiating down his left knee. Patient states that his left foot feels more cold. He does have a pulse. He is able to move it. No other falls or trauma. Patient states he has never had this problem before. Patient appears to have had a history of stroke and ACS. Allergies/Adverse Reactions: venom-honey bee [bee venom (honey bee)] Allergy (Unknown, Verified 01/28/24 17:53) Home Medications: Carvedilol 3.125 mg [Coreg 3.125 MG] 12.5 mg PO BID 01/03/21 [History] Pravastatin Sodium 1 tab PO HS 09/09/22 [History] Aspirin EC 325 mg [Ecotrin 325 MG] 325 mg PO DAILY 05/12/23 [History] Metformin HCl 500 mg [Glucophage 500 MG] 500 mg PO BIDWM 05/12/23 [History] Hx Tetanus, Diphtheria Vaccination/Date Given: No Hx Influenza Vaccination/Date Given: No Hx Pneumococcal Vaccination/Date Given: No Immunizations Up to Date: Yes Travel Risk - International Travel Have you traveled outside of the country in past 3 weeks: No - Emerging Infectious Disease Are you exhibiting symptoms associated with any current EIDs: No - Past Medical History Pertinent Past Medical History: Yes Neurological History: No Pertinent History ENT History: No Pertinent History Cardiac History: High Cholesterol, Hypertension Respiratory History: No Pertinent History Endocrine Medical History: Other Musculoskeletal History: No Pertinent History GI Medical History: No Pertinent History History: No Pertinent History Psycho-Social History: No Pertinent History Male Reproductive Disorders: No Pertinent History Other Medical History: pre diabetic - Past Surgical History Past Surgical History: Yes Neuro Surgical History: No Pertinent History Cardiac: No Pertinent History Respiratory: No Pertinent History Gastrointestinal: No Pertinent History Genitourinary: No Pertinent History Musculoskeletal: Orthopedic Surgery Male Surgical History: No Pertinent History Other Surgical History: right shoulder-LABRUM, RT CARPAL TUNNEL Significant Family History: heart disease - Social History Smoking Status: Current every day smoker How long have you smoked: 25 Exposure to second hand smoke: Yes Drug Use: none Patient Lives Alone: No - Social Determinants of Health Will the patient participate in the screening: Declined to provide - Nursing Vital Signs Nursing Vital Signs: Initial Vital Signs Temperature 97.5 F 01/28/24 17:55 Pulse Rate 81 01/28/24 17:55 Respiratory Rate 18 01/28/24 17:55 Blood Pressure 188/86 01/28/24 17:55 O2 Sat by Pulse Oximetry 99 01/28/24 17:55 Pain Scale Pain Intensity 7 - Physical Exam SpO2: 99 Comments: 01/28/24 19:09 Review of Systems Constitutional: Negative for fever. HENT: Negative for congestion. Respiratory: Negative for shortness of breath. Cardiovascular: Negative for chest pain. Gastrointestinal: Negative for abdominal pain. Genitourinary: Negative for dysuria. Musculoskeletal: Negative for back pain. Left knee pain Skin: Negative for rash. Neurological: Negative for headaches. Psychiatric/Behavioral: Negative for behavioral problems. All other systems reviewed and are negative. Physical Exam Vitals signs and nursing note reviewed. Constitutional: Appearance: Patient is well-developed. HENT: Head: Normocephalic and atraumatic. Eyes: Conjunctiva/sclera: Conjunctivae normal. Neck: Musculoskeletal: Normal range of motion. Trachea: No tracheal deviation. Cardiovascular: Rate and Rhythm: Normal rate. Pulmonary: Effort: Pulmonary effort is normal. No respiratory distress. Abdominal: Palpations: Abdomen is soft. Musculoskeletal: General: Left knee tenderness throughout the anterior side. Minimal posterior knee tenderness. 2+ distal pulses. Left foot does feel more cold compared to the right foot. Sensation intact, full range of motion. Strength is 5 out of 5 bilaterally. 2 point tactile discrimination intact as well. Good cap refill. Skin: General: Skin is warm and dry. Neurological/ Psychiatric: Mental Status: Mental status, behavior, interaction with environment is appropriate for patient's age and condition - Course Nursing assessment & vital signs reviewed: Yes Ordered Tests: Active Orders 24 hr Category Date Time Status KNEE (3 VIEWS) Stat Exams 01/28/24 18:17 Taken - Progress Progress: improved Progress Note: 01/28/24 19:10 Differential diagnosis include vascular injury, popliteal cyst, fracture, other injury. Initially we did start with an x-ray this did return negative. 01/28/24 19:26 After the x-ray returned negative I did discuss the above possible diagnosis with the patient. Including arterial clot, DVT, other vascular injury. 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 He stated that he felt his foot was more warm and that it was improving pain. On my reexam he is correct of the left foot is more warm. Pulses continue to be intact throughout the foot. Given that he is improving, he did decline any further vascular imaging tonight. I did describe the risks and benefits of vascular imaging including catching and important blockage or other issue. He states that he understands he may lose his leg or having other turner catastrophic injury occur. However, he would rather follow-up as an outpatient. Using shared decision making with his , we did develop an outpatient plan for the patient. He should return here sooner should he not follow-up or have any new or changing symptoms. Counseled pt/family regarding: diagnosis, rad results - Departure Departure Disposition: Home Clinical Impression: Left knee pain Condition: Stable Critical Care Time: No Referrals: UZIEL SY MD [Primary Care Provider] - Follow up/PCP as directed Instructions: Contusion (DC) Additional Instructions: Follow-up with your PCP for repeat pulse checks tomorrow morning. You may return here sooner for any new or changing symptoms.
--- NOTE | 2024-01-29 09:26 | XRAY ---
Indication: Pain following injury. Comparison: None 3 view left knee demonstrates tiny nonspecific effusion and incidental tiny posterior fabella. No other bony, articular, or soft tissue abnormalities.
== END 2024-01-28 19:35 | disposition home or self-care (01) ==
LOC: ED 17:23
DX: M25.562 Pain in left knee (principal); W18.40XA Slipping, tripping and stumbling without falling, unspecified, initial encounter; Z79.899 Other long term (current) drug therapy
CPT/HCPCS: 73562; 99282; 99283